=== PATIENT | female | born 1955 | race Caucasian/White ===

== ENCOUNTER → 2019-03-17 10:30 | Outpatient (CLI) | payer MEDICARE, BC, SELFPAY ==
[2019-03-17 11:35] LABS: Add Manual Diff / Slide Review NO; Basophils Absolute Auto 0 /uL (0-100); Basophils Percent Auto 0.3 % (0-2); Eosinophils Absolute Auto 200 /uL (0-450); Eosinophils Percent Auto 2.5 % (2-4); Hematocrit 46.3 % (36-46); Lymphocytes Absolute Auto 1200 /uL (1100-4500); Lymphocytes Percent Auto 16.9 % (25-40); Mean Corpuscular HGB Conc 34.5 % (30-36); Mean Corpuscular Hemoglobin 32.8 PG (26-34); Mean Corpuscular Volume 95.1 fL (80-100); Monocytes Absolute Auto 500 /uL (0-900); Monocytes Percent Auto 6.7 % (3-14); Neutrophils Absolute Auto 5100 /uL (1500-7000); Neutrophils Percent Auto 73.6 % (50-75); Platelet Count 213 X10^3/uL (150-400); Red Blood Cell Count 4.87 X10^6/uL (4.0-5.2); Red Cell Distribution Width 13.2 % (11.6-14.8)
[2019-03-17 12:07] LABS: Blood Urea Nitrogen 14 mg/dL (7-17); Calcium 9.6 mg/dL (8.4-10.2); Carbon Dioxide 34 mmol/L (22-32); Chloride 98 mmol/L (98-107); Cholesterol 218 mg/dL (140-199); Estimated Glomerular Filt Rate > 60.0 mL/min (>60); Glucose 97 mg/dL (80-110); HEMOLYSIS < 15 (0-50); Sodium 139 mmol/L (137-145); Triglycerides 149 mg/dL (35-150)
[2019-03-17 12:22] LABS: HDL Cholesterol 111 mg/dL (40-60); LDL Cholesterol Calculated 77 mg/dL (<100)
== END ==
PROVIDERS: PCP Internal Medicine; Visit Provider Internal Medicine
DX: I10 Essential (primary) hypertension (principal); Z13.220 Encounter for screening for lipoid disorders; Z01.818 Encounter for other preprocedural examination
CPT/HCPCS: 36415; 80048; 80061; 85025

== ENCOUNTER → 2019-03-27 09:55 | Outpatient (CLI) | payer MEDICARE, BC, SELFPAY | PROVIDERS: PCP Internal Medicine; Visit Provider Internal Medicine | DX: Z78.0 Asymptomatic menopausal state (principal); R29.890 Loss of height; M45.9 Ankylosing spondylitis of unspecified sites in spine | CPT/HCPCS: 77080 ==

== ENCOUNTER → 2019-03-28 10:04 | Outpatient (CLI) | payer MEDICARE, BC, SELFPAY ==
--- NOTE | 2019-03-28 | DI.MG.S_ITS ---
BILATERAL DIGITAL SCREENING MAMMOGRAM 3D/2D WITH CAD: 03/28/2019 CLINICAL: Routine screening. Comparison is made to exams dated: 04/26/2015 mammogram and 03/19/2017 mammogram - [facility]. There are scattered fibroglandular elements in both breasts. Current study was also evaluated with a Computer Aided Detection (CAD) system. No significant masses, calcifications, or other findings are seen in either breast. There has been no significant interval change. IMPRESSION: NEGATIVE There is no mammographic evidence of malignancy. A 1 year screening mammogram is recommended. This exam was interpreted at Station ID: [id number]. NOTE: For mammograms, a report in lay terms will be sent to the patient. Approximately 15% of breast malignancies will not be visualized mammographically. In the management of a palpable breast mass, a negative mammogram must not discourage biopsy of a clinically suspicious lesion. Electronically Signed By: Annabella paz/luis:03/30/2019 08:08:53 letter sent: Normal Exam ACR BI-RADS Category 1: Negative [id number]
== END ==
PROVIDERS: PCP Internal Medicine; Visit Provider Internal Medicine
DX: Z12.31 Encounter for screening mammogram for malignant neoplasm of breast (principal)
CPT/HCPCS: 77063; 77067

== ENCOUNTER 2019-04-01 12:58 | Day surgery (SDC) | payer MEDICARE, BC, SELFPAY ==
[2019-03-27 07:59] VITALS: BMI 35.4
[2019-04-01] VITALS (15 sets, daily range): BP systolic 103–154; BP diastolic 58–89; PULSE 53–67; RESP 8–98; TEMP 35.8–37.2; O2SAT 94–100; BMI 34.2
--- NOTE | 2019-04-01 07:43 | DI.RAD.S_ITS ---
PROCEDURE: XR KNEE RT 1TO2V INDICATIONS: TKA TECHNIQUE: 2 views of the knee were acquired. COMPARISON: None. FINDINGS: Bones: Status post right knee total arthroplasty. No fracture identified. Expected hardware alignment. Soft tissues: No joint effusion. No suspicious soft tissue calcifications. IMPRESSION: Expected postoperative appearance. Dictated by: Vish Olivares M.D. on 04/02/2019 at 9:02 Approved by: Vish Olivares M.D. on 04/02/2019 at 9:03
[2019-04-01] MEDS: ACETAMINOPHEN 325 MG TABLET 975 MG PO ×2 (13:45→20:25)
[2019-04-01] MEDS: PREGABALIN 75 MG CAPSULE PO (13:45)
[2019-04-01] MEDS: CELECOXIB 200 MG CAPSULE PO (13:45)
--- NOTE | 2019-04-01 15:24 | PM.PREOP ---
Pre-operative Note Interval Note History & Physical reviewed/Exam performed by Physician: Yes Changes to H&P: No
[2019-04-01] MEDS: CEFAZOLIN 2 GM/100 ML FROZ.PIGGY IV ×2 (15:51→23:09)
--- NOTE | 2019-04-01 16:10 | PM.OP.1 ---
Operative Date/Time/Diagnoses Date of procedure: 04/01/19 Time of procedure: 17:46 Pre-op diagnosis: Right knee osteoarthritis Post-op diagnosis: same Procedure & Clinicians Procedure: Right total knee arthroplasty Same procedure as scheduled: Yes Indications: The patient presents today for total knee arthroplasty after failure of conservative treatment. The nature of the procedure including the risks and benefits, alternatives, postoperative course and expected outcome were discussed and all questions answered. Consent was obtained. Operative site confirmed and marked. Surgeon: Gil Moore Instructional Services Specialist: Kenrick Rider Anesthesia Type: General, Spinal and Local Operative Notes Findings: Severe osteoarthritis with varus alignment. Specimen(s): none sent Prosthetic devices, grafts, tissues, transplants, or devices: [employer]elin BCS: 6 femoral component, 4 tibial component, 9 mm BCS polyethylene tray and 35 x 9 mm round patella Applied: implant(s) Estimated Blood Loss (mL): 10 Blood products transfused: none Tourniquet time (min): 63 Procedure in detail: The patient was taken to the operative suite and placed under general and spinal anesthesia. The patient was given prophylactic antibiotics prior to surgery. The patient was also given tranexamic acid, 1 g, just prior to surgery for postoperative hemostasis. The lateral knee was prepped and the joint injected with 20 mL of 1% Lidocaine with epinephrine. The knee was then prepped and draped in usual sterile fashion. The leg was exsanguinated with an Esmarch dressing and the tourniquet raised to 250 torr. A 15 cm anterior incision was made. Next a medial trivector arthrotomy was made. The extensor mechanism was marked to ensure accurate repair. Initial exposing dissection was carried out medially and laterally. The knee was then extended and the patellar thickness was measured and a cut made removing approximately 9 mm of bone. The patella was then sized and drilled. Some excess lateral bone was excised and the patellofemoral ligament released. The knee was then flexed and the intramedullary femoral guide meghan placed. The distal femoral cut was made in 6 ? of valgus at the + 0 position. The femoral size was measured and the appropriate cutting block was then placed and the anterior, posterior and chamfer cuts made. The intramedullary tibial alignment meghan was then placed. The guide was set to remove approximately 10 mm from the less affected lateral side. The proximal tibial cut was then made with an oscillating saw. All meniscus and bony debris was then removed. Posterior femoral osteophytes removed with a curved osteotome. Flexion extension gaps were checked. There was some mild medial tightness. This was corrected with percutaneous release of the MCL with an 18 gauge needle along with standard soft tissue releases and osteophyte removal. The soft tissues were then injected with a combination of 20 mL of half percent Marcaine with epinephrine and 20 mL of Exparel. The trial components were then placed. The knee went into full extension and flexion beyond 120?. There was excellent medial-lateral balance throughout motion. Patellar tracking was excellent. The trial components were removed and the knee was cleansed with Pulsavac irrigation and dried. The final components were cemented with high viscosity vacuum mixed bone cement with antibiotics. The joint was filled with a dilute Betadine solution. The knee was held in extension and the patellar clamped until the cement was fully cured. The knee was then irrigated. The extensor mechanism was closed with 5 interrupted #1 Vicryl sutures and a running Quill suture at 90 degrees of flexion. The joint was then injected with a combination of 1 g of tranexamic acid and 20 mL of quarter percent Marcaine with epinephrine. The subcutaneous tissue was closed with 2 0 Vicryl. The skin was closed with agueda and surgical adhesive. An Aquacel dressing and Neel wrap were then applied. The patient tolerated the procedure well and was returned to recovery room in good condition. Complications: none Post-operative Condition: stable Disposition: PACU Plan for aftercare: [facility] protocol for total knee arthroplasty.
--- NOTE | 2019-04-01 16:46 | SUR.OPER ---
Supine on padded OR bed. Pillow under head, arms secured on padded armboards <90 degree abduction. Safety belt across torso. Non-operative leg secured with tape over blanket over lower leg. Operative leg secured in DeMayo/Cr positioner. Foam padded brace at thigh of operative leg.
[2019-04-01] MEDS: BUPIVACAINE 0.25% W/ EPI (PF) 40 ML, BUPIVACAINE LIPOSOME 266 MG, SODIUM CHLORIDE 0.9% ... INJ (16:54)
[2019-04-01] MEDS: BUPIVACAINE 0.25% W/ EPI (PF) 20 ML, TRANEXAMIC ACID 1,000 MG, SODIUM CHLORIDE 0.9% 10 ML INJ (16:55)
--- NOTE | 2019-04-01 18:17 | SUR.PHASEI ---
Patient arrived in PACU somnolent. Arouses to noxious stimuli. Denies pain/nausea. X-ray done at bedside. VSS.
[2019-04-01] MEDS: LACTATED RINGERS 1,000 ML 125 ML IV (18:50)
[2019-04-01] MEDS: ASPIRIN EC 81 MG TABLET PO (20:25)
--- NOTE | 2019-04-02 00:07 | PC.NURSE ---
Addendum entered by Jazmyn Villegas R.N. 04/02/19 03:33: States pain just above right knee is 3/10 and feels achy; medicated with Ibuprofen. Up to BSC with walker and 1 assist and did well. O2 removed again for trial of titration; remains on continuous oximetry. Original Note: Patient is alert and oriented. Breath sounds CTA with sat of 96% on oxygen at 1L/min per NC. O2 removed at shift change and intermittently dropping down into upper 80's so placed back on oxygen at 0.5L/min; on continuous pulse oximetry so will continue to monitor. HRR but bradycardic at 56 bpm. Denies nausea. BT present and abdomen is soft; denies flatus. Has voided using bedpan and denies dysuria, frequency or urgency. Dressing (Aquacel + kerri wrap) is CDI to right knee. Denies any pain. Some swelling noted in thigh, foot and ankle of right LE. CMS is intact bilaterally. Able to move right leg well and can lift off bed. Gait/transfer not assessed as has not been out of bed since return from surgery but reports pre-op weakness related to knee and arthritis. Is able to turn self in bed. Fall risk score is moderate.
[2019-04-02] MEDS: IBUPROFEN 400 MG TABLET PO ×2 (03:21→14:30)
[2019-04-02] MEDS: LACTATED RINGERS 1,000 ML 125 ML IV (03:23)
[2019-04-02 03:25] VITALS: BP 127/88; PULSE 63; RESP 18; TEMP 36.7; O2SAT 96
[2019-04-02] MEDS: PANTOPRAZOLE 20 MG TABLET PO (06:05)
[2019-04-02 06:26] LABS: Hematocrit 38.9 % (36-46); Hemoglobin 13.2 g/dL (12.0-16.0)
[2019-04-02 07:45] VITALS: BP 116/72; PULSE 58; RESP 16; TEMP 36.7; O2SAT 92
[2019-04-02] MEDS: ASPIRIN EC 81 MG TABLET PO (08:25)
[2019-04-02] MEDS: hydroCHLOROthiazide 25 MG TABLET PO (08:25)
[2019-04-02] MEDS: ACETAMINOPHEN 325 MG TABLET 975 MG PO ×2 (08:25→14:29)
[2019-04-02] MEDS: CITALOPRAM 10 MG TABLET PO (08:26)
[2019-04-02] MEDS: CEFAZOLIN 2 GM/100 ML FROZ.PIGGY IV (08:26)
--- NOTE | 2019-04-02 09:20 | PT.IIE ---
note documented by PT student Avis Mueller. I certify that I have reviewed this documentation and is involved with this patient's tx. Current Diagnoses Bilateral primary osteoarthritis of knee (04/01/19) Surgery Performed Operation Date: 04/01/19 15:00 Actual Procedures p Total Knee Arthroplasty(Right) - Gil Moore MD Surgical History (Last Updated 03/27/19 @ 08:18 by Erica Leong, RN) H/O arthroscopic knee surgery (Acute) Hx of bariatric surgery (Acute ~2008) Hx of cervical spine surgery (Acute ~2014) Medical History (Last Updated 03/27/19 @ 08:18 by Erica Leong RN) Anxiety (Acute) Arthritis (Acute) Depression (Acute) Easy bruisability (Acute) HTN (hypertension) (Acute) Osteoarthritis (Acute) Physical Therapy Inpatient Evaluation/Re-Eval M1 PT/OT-IP Prior Functional Status Start: 04/02/19 13:09 Freq: NEEDED Status: Discharge Protocol: Document 04/02/19 09:20 MT (Rec: 04/02/19 14:28 MT [id number]) Medical Review Prior Functional Status Medical History Reviewed Yes Diet/Fluid Consistency Regular Communication Pt was able to fully communicate Mobility and Gait Pt was fully independent with all of her mobility and gait. She self limited her gait distance d/t pain in B knees. Activities of Daily Living and IADL's Pt was fully independent with all of her ADl/iADL's Social History Household Members spouse Living Arrangements House Number of Floors (Floors) One Floor Number of Stairs To Enter/Railing? Pt does not have any stairs, but has about a 2 inch threshold to get inside of her house Home Environment High Toilet,Walk in Shower Home Equipment Front Wheel Walker,Straight Cane,Raised Toilet Seat w/ Armrests,Shower Seat without Backrest Employment Status Laundry Assistant Employed Additional Social History Comment Pt is employed and fully works at a computer at home M2 PT-IP Current Condition Start: 04/02/19 13:09 Freq: NEEDED Status: Discharge Protocol: Document 04/02/19 09:20 MT (Rec: 04/02/19 14:28 MT [id number]) Physical Therapy Current Condition Current Condition Evaluation Date 04/02/19 Treatment Diagnosis Reduced mobility and gait following R TKA Onset Date 04/01/19 Weight Bearing Status Weight Bearing Status Weight Bear as Tolerated M3 PT-IP Subjective Start: 04/02/19 13:09 Freq: NEEDED Status: Discharge Protocol: Document 04/02/19 09:20 MT (Rec: 04/02/19 14:28 MT [id number]) Subjective Physical Therapy Visit Type Type Initial Evaluation Visit Start Time 09:20 Visit Stop Time 10:06 Total Visit Minutes 46 Number of MAC ARTIST Visits 0 Physical Therapy Visit Comments Patient Comments Pt was agreeable to particiapte in physical therapy evaluation. Therapy Pain Assessment Pain When Pain Assessed At Rest Pain Present Pain Present Pain Reported Location Right Knee Intensity 2 Scale Used increase to 4/10 during ambulation Description Aching,Dull Pain Management Techniques Apply Cold,Re-positioning, Timing of Activity with Medications M4 PT-IP Mobility and Gait Start: 04/02/19 13:09 Freq: NEEDED Status: Discharge Protocol: Document 04/02/19 09:20 MT (Rec: 04/02/19 14:28 MT [id number]) PT-Bed Mobility Assessment Sit to Supine Sit to Supine Independent Scooting Scooting to Edge of Bed Independent Scooting Up and Down in Bed Independent PT-Transfer Assessment Sit to and From Stand Sit to and from Stand Contact Guard Assistance, Minimal Assistance,1 Person Assistance Equipment Transfer Assistive Device Gait Belt,Front Wheeled Walker Orthotic/Prosthetic Devices or Brace: No Transfers Transfer Destination Bed,Chair,Wheelchair Transfer Technique Stand Step Pivot Transfer Ability Level of Assist Contact Guard Assistance, Minimal Assistance Comments Mobility Comments Pt demonstrated independence in the bed mobility that was tested. Unable to further test bed mobility due to onset of orthostatic drop in BP in which the pt needed to maintain a recumbant position in order to increase BP. Pt demonstrated CGA-Katie for transfers due to safety when the pt was feeling dizzy and had orthostatic symptoms. Pt's BP was measured in sitting prior to first stand ( 119/71). Pt was perfomring well and reported no fatigue or dizziness and ambulated. Following ambulation of 100ft, pt began reporting symptoms of dizziness and BP was retaken (84/44). Nursing was notifed of change in status. Pt was immediately transferred to her bed and positioned in supine with her legs elevated and BP was retaken (100/54) showing improvement with positioning. Gait Assessment Gait Gait Assistance Required: Contact Guard Assist Distance (Feet) 90 Able to Maintain Weight Bearing Status Yes During Gait Assistive Devices Assistive Device Gait Belt,Front Wheeled Walker Orthotic/Prosthetic Devices or Brace: No Gait Deviations General Gait Pattern Antalgic,Decreased Stride Length,Decreased Feet Clearance Factors Limiting Gait Function Factors Limiting Gait Function Decreased Sensation,Decreased Strength,Limited Range of Motion,Pain,Poor Balance Comments Gait Comments Pt was able to ambulate 90 ft with FWW and CGA. Pt began exhibiting dizziness following gait activities and further activity was withheld. Stair Climbing Assessment Comments Stair Climbing Comments stair assessment was withheld due to orthostatic signs and symptoms PT-Balance Assessment Sitting Balance and Reactions Static Sitting Balance Ability Normal Dynamic Sitting Balance Ability Normal Standing Balance and Reactions Static Standing Balance Ability Fair Dynamic Standing Balance Ability Fair Device Used 2WW M5 PT-IP Objective Assessments Start: 04/02/19 13:09 Freq: NEEDED Status: Discharge Protocol: Document 04/02/19 09:20 MT (Rec: 04/02/19 14:28 MT [id number]) Orientation Orientation/Cognition Level of Alertness Alert Orientation Name,Age,Birthday,Month,Date, Year,Day of Week,Place, Situation Language Function Ability No Deficits Noted Safety Awareness Understands Safety Issues Memory Description No Deficits Noted Comments Pt presents fully alert and oriented Gross Range of Motion Lower Extremity ROM Assessment Within Functional Limits Strength Lower Extremity Strength Assessment Right Impaired Hip 4-/5 R hip flex Knee 5/5 R knee flex/ext Ankle 4-/5 R ankle DF Comments Strength Comments Pt's L hip flexion is WFL, but is about a 4+/5 Muscle Tone Muscle Tone WNL Yes M6 PT-IP Treatment Start: 04/02/19 13:09 Freq: NEEDED Status: Discharge Protocol: Document 04/02/19 09:20 MT (Rec: 04/02/19 14:28 MT [id number]) Physical Therapy Treatment Education Education Provided Post-Op Packet,Safety M7 PT-IP Assessment and Plan Start: 04/02/19 13:09 Freq: NEEDED Status: Discharge Protocol: Document 04/02/19 09:20 MT (Rec: 04/02/19 14:28 MT [id number]) PT Summary Assessment and Plan Potential Rehabilitation Potential Excellent Status of Condition at Evaluation Evolving Summary Impairments Pain,Strength,Balance, Transfers,Gait,Activity Tolerance Assessment Summary Pt demonstrates decreased ability to transfer and ambulate from her PLOF following a RTKA. She is independent in sit to supine bed mobility. She is able to perform transfer with 2WW and CGA-Katie. Pt was able to ambulate 90ft with FWW and CGA . Following ambulation, pt sat for a minute and began reporting dizziness. her BP was measured and found to be orthostatic and she was laid down in supine in bed and her feet were elevated, which re- elevated BP. Pt will be able to discharge home from facility with assist from , pending that is able to safely provide assistance and she is able to complete 1 stair step for preparation of negotiating threshold to get in her house. Goals Bed Mobility Goal Independent Transfer Goal Standby Assistance,Front Wheeled Walker Gait Goal Standby Assistance,Front Wheel Walker Gait Distance 100ft Other Goals SBA for 1 step Days to Meet Goals 3 Frequency of Treatment Frequency Of Treatment Twice a Day Treatment Plan Physical Therapy Treatment Plan Bed Mobility Training,Transfer Training,Gait Training, Therapeutic Exercise,Balance Retraining,Post Op Education, Discharge Planning,Hot or Cold Pack Other Recommendations and Next Treatment stair training for safetyy Focus ascend/descend 1 step in preparation for pt's discahrge environment Recommendations To Nursing Amount of Assist Needed 1 Person Assist Discharge Recommendations PT Discharge Recommendations Home with Assistance, Outpatient PT
--- NOTE | 2019-04-02 10:49 | P.DS_ITS ---
History of Present Illness History of Present Illness Date Patient Seen: 04/02/19 Time Patient Seen: 09:00 Chief complaint: [id number] Narrative: The patient presents today for total knee arthroplasty after failure of conservative treatment. The nature of the procedure including the risks and benefits, alternatives, postoperative course and expected outcome were discussed and all questions answered. Consent was obtained. Operative site confirmed and marked. Post op day 1 s/p total right knee arthroplasty with Dr. Moore. No acute events overnight. Patient ambulated with PT this AM and felt dizzy. Last BP 116/72. In bed denies fever, chills, dizziness, nausea, vomiting, palpatations, chest pain, shortness of breath. H/H 13.2/38.9. 24 hr I&O 2000/1250 mL. Has second PT session setup for this afternoon.Patient voiding without assistance. Patient's pain is well managed with tylenol, educated on likelihood of pain increasing. Patient has no complaints. Discharge Providers Provider Date of admission: 04/01/19 12:58 Discharge Date: 04/02/19 Primary care physician: Yojana Ríos MD Consults: 04/01/19 18:48 Consult to Discharge Planning Routine Comment: Consult to Physical Therapy Evaluate & Treat Comment: Physician Instructions: postop TKA protocol Consult to Respiratory Therapy Evaluate & Treat Comment: Physician Instructions: Evaluate and treat Discharge provider: Marleny Morgan PA-C Summary Hospital Course Discharge Diagnosis: s/p right total knee arthroplasty arthritis osteoarthritis hypertension anxiety depression Hospital Course: Patient admitted s/p right total hip arthroplasty with Dr. Moore. On POD 1 patient was ready for discharge home with assistance from Davon Oh. Patient felt dizzy during first physical therapy session, likely vasovagal. Pain is well managed with tylenol and has prescription for oxycodone at home. Patient is voiding and eating without difficulty or assistance. Outpatient PT scheduled with [facility] PT. ASA 81 mg BID for dvt prophylaxis. Status at Discharge Cognitive/behavioral status at discharge: at baseline, oriented Functional status at discharge: uses cane/walker Overall status at discharge: patient is progressing back to baseline Time Spent with Patient Time spent: Less than 30 minutes Exam Vital Signs (past 8 hours): - 04/02/19 03:25 04/02/19 07:45 Temperature 98.1 F 98.1 F Pulse Rate 63 58 L Respiratory Rate 18 16 Blood Pressure 127/88 116/72 Pulse Oximetry 96 92 Oxygen Delivery Method Nasal Cannula Oxygen Flow Rate 0 Narrative Exam Narrative: 64 year old female laying in bed comfortably, in no apparent distress. A&Ox3. Dressing is CDI. SCD's in place. Patient able to actively p lantar flex/dorsiflex. Dorsalis pedis 2+ b/l. Capillary refill <2seconds LE b/l. Calves warm, soft, compressible, nttp. Objective Labs Result Diagrams: 04/02/19 06:02 Labs: Laboratory Results - last 24 hr 04/02/19 06:02 Hgb 13.2 Hct 38.9 Discharge Plan Discharge Plan Patient Disposition: Home Discharge comment: discharge home pending physical therapy Discharge Med Rec/Prescriptions Prescriptions: New ibuprofen 400 mg tablet 400 mg PO Q4H Qty: 60 RF: 0 acetaminophen [Tylenol Extra Strength] 500 mg tablet 500 mg PO Q4H PRN (Reason: pain) Qty: 60 RF: 0 aspirin 81 mg tablet,delayed release (DR/EC) 81 mg PO DAILY Qty: 60 RF: 0 Continued citalopram 20 MG tablet 10 mg PO QDAY Qty: 0 RF: 0 omeprazole 20 mg Capsule,Delayed Release(Dr/Ec) 20 mg PO DAILY RF: 0 hydrochlorothiazide 25 mg Tablet 25 mg PO DAILY RF: 0 diclofenac sodium 50 mg Tablet,Delayed Release (Dr/Ec) 50 mg PO Q12H PRN (Reason: Pain) RF: 0 Follow up/Referrals: Gil Moore MD [Physician] - Yojana Ríos MD [Primary Care Provider] - Provider Discharge Instructions Diet: Regular Activity: weightbearing as tolerated. follow [facility] protocol for total knee arthrolplasty Cold/Heat Therapy: continue cold/heat therapy as needed Skin/Wound/Dressing Care Report to your healthcare provider any signs of infection, such as:: chills, fever, increased pain, unusual drainage and unusual redness Dressing: Keep dressing dry, can be used in shower, don't soak (e.g. bath). Contact office if saturated. Visit Report/Discharge Packet Instructions: DI for Knee Replacement Stand Alone Forms: Surgery Discharge Discharge Data Primary Care Provider: Yojana Ríos Quality VTE Deep Vein Thrombosis/Pulmonary Embolism Present on Admission: No
--- NOTE | 2019-04-02 12:11 | CM.DANOTE ---
DCP Assessment: EMR reviewed: patient is a 64 yr old female. Patient had Rt TKA preformed by Dr Moore. PCP is Dr Ríos. CM met with patient at bedside and explained CM/ RN role. patient is I with all ADL's at baseline. patient lives in a single level home with 1 step to get into the home. Patient lives with her DAVON (DPOA) [phone] who will be at home with patient for two weeks. Patient is on [facility] path and had f/u appt with both OP PT and f/U surgeons appointments scheduled. PT step evaluation pending. Insurance: 1st; medicare, 2nd [facility] Plan: D/C home with when stable. No D/C planning needs identified at this time. Yojana li RN. Discharge Planning/Care Management CM Discharge Assessment Start: 04/02/19 12:09 Freq: Status: Active Protocol: Document 04/02/19 12:09 HS (Rec: 04/02/19 12:11 [id number]) Discharge Planning Assessment Assigned Supervisor Prop Making Yojana Li RN DPOA/Assigned Designee Name Davon Oh () Contact Information [phone] Advance Directives? Yes Advance Directives on File No History Provided By Patient Has Patient been admitted in last 30 No days? Prior Living Arrangements House Household Members spouse Type of transporation used prior to Drives own vehicle admit Independent with ADL's Yes Is patient alert and oriented? Yes Caregiver for Another No DME Already Rented / Owned FWW / Walker,Cane Patient/Family Preference OP PT Therapy Discharge Plan Home Whiteboard Updated in Patient Room with Yes name and ext. # of Supervisor Prop Making Review Status In Process Next Review Type Continued Stay Review Pre-Anesthesia Assessment Start: 03/27/19 07:59 Freq: Status: Complete Protocol: Document 03/27/19 07:59 CAB (Rec: 03/27/19 08:31 CAB [id number]) Pre-Anesthesia Assessment Patient Also Known As (AKA) Cindi Patient Information Reviewed Via Phone Assessment Assessment Completed With Patient Diagnostic Results BMP/CMP,CBC Comment Labs @ [facility] 03/17/19. EKG @ PCP, not available at time of assess Primary Care Provider Yojana Ríos Seen Specialist in Last 12 Months Yes Specialist Seen Orthopedist Primary Language Nepali Clothes Drier Repairer Required No Height 170.18 cm Weight 102.512 kg Body Mass Index (BMI) 35.4 Hearing Ability Normal Visual Assist Contacts,Glasses Dentition Type Teeth, Natural Present Barriers to Learning None Other Aids No Hx Anesthesia Reactions Yes: PONV Hx Family Anesthesia Reaction Yes: Mom (age 80) didn't wake up the same person after surgery Hx Malignant Hyperthermia No Hx Blood Transfusions No Anesthesia Review Requested No alcohol intake current Alcohol Intake Frequency Other: Holding last 7 days for surgery Smoking Status Never smoker Substance Use Type does not use Pain Present Pain Reported Musculoskeletal Symptoms Abnormal Gait,Back Pain, Difficulty Walking,Joint Pain, Muscle Cramps,Muscle Spasms, Muscle Weakness History of Falling (Recent or History of No ) Patient is completely paralyzed or No completely immobile Mental Status Oriented to own ability Is patient on oxygen? No Does patient have DAVILA/SOB No Hx Sleep Apnea No Currently Taking a Beta Darwin No Can You Climb a Flight of Stairs Without Yes SOB Hx Chest Pain No Hx SOB No Hx Syncope or Dizziness No Anti-Coagulant Therapy No Has a Automatic Steel Tie Adjuster No Cardiac Testing No Hx Pacemaker/ICD No Pacemaker Rep Required? No Cardiac Clearance Received Not Applicable Diet Type At Home Regular dysphagia No Urinary Catheter Present No Hx Urinary Self Catheterization No Diabetes No Patient No Lactating No Hx Drug Resistant Organism No Presence of External or Internal Medical Yes: Gastric sleeve, cervical Devices hardware Have you traveled outside the [facility] in the last 30 days? Comment Suzanne travel end of February Marital Status Lives With spouse Prior Living Arrangements House Number of Floors (Floors) One Floor Support System Spouse Does the Patient Have Assistance After Yes Surgery Patient Discharge Plan Description Return Home Comment Pt advised overnight length of stay per surgeon Feels Safe in Current Environment Yes Been Physically Hurt or Threatened By a No Person in Current Environment Do you have thoughts of harming yourself None or others? Are you currently considering suicide? No Do you have a plan to hurt yourself or No Plan others? Do You Have Any Spiritual Beliefs That No May Affect Your HC Choices? Do You Have Any Cultural Practices That No May Affect Your HC Choices? Comment Sikh Who Can We Speak to About Patient's Care Family, friends Identifying Code for Release of Patient Declines to issue Information Health Care Proxy/Next of Kin Al () Health Care Proxy Emergency Contact Name Al () Emergency Contact Advance Directives? Yes Advance Directives on File No Requested Patient Bring Advanced Yes Directives DOS Power of Pulp Cooker Yes Power of Pulp Cooker Name Al () Power of Pulp Cooker PAC Instructions Do not shave/clip surgical site,Durable medical equipment ,Medications to take/avoid, Nasal antibiotic,No ETOH/ petroleum product on skin DOS, NPO,Post-op transportation,Pre -surgical wash,Sturdy shoes/ comfortable clothes,Do not bring valuables and remove jewelry
--- NOTE | 2019-04-02 13:29 | PC.NURSE ---
Pt is dressed and ready for discharge home with Spouse. IV has been removed. Went over d/c instructions with Pt-discussed d/c meds, time of last dose, reviewed stroke education, s/s of infection, tylenol dosing, icing, showering, and follow up. Pt denies further questions and is ready to be taken out to POV with Spouse and all belongings after Pt works with P.T. and is cleared.
--- NOTE | 2019-04-02 14:30 | PT.IPTN ---
Note completed by PT student Avis Mueller. I certify that I have reviewed this documentation and is involved in this pt's tx. Current Diagnoses Bilateral primary osteoarthritis of knee (04/01/19) Surgery Performed Operation Date: 04/01/19 15:00 Actual Procedures p Total Knee Arthroplasty(Right) - Gil Moore MD Physical Therapy Treatment Note M2 PT-IP Current Condition Start: 04/02/19 13:09 Freq: NEEDED Status: Discharge Protocol: Document 04/02/19 09:20 MT (Rec: 04/02/19 14:28 MT [id number]) Physical Therapy Current Condition Current Condition Evaluation Date 04/02/19 Treatment Diagnosis Reduced mobility and gait following R TKA Onset Date 04/01/19 Weight Bearing Status Weight Bearing Status Weight Bear as Tolerated M3 PT-IP Subjective Start: 04/02/19 13:09 Freq: NEEDED Status: Discharge Protocol: Document 04/02/19 14:30 MT (Rec: 04/02/19 18:41 MT [id number]) Subjective Physical Therapy Visit Type Type Treatment Note Visit Start Time 14:30 Visit Stop Time 14:43 Total Visit Minutes 13 Number of HAY BUCKLER Visits 0 Physical Therapy Visit Comments Patient Comments Pt was eager to participate in physical therapy Therapy Pain Assessment Pain When Pain Assessed At Rest Pain Present Pain Present Pain Reported Location Right Knee Intensity 2 Scale Used Numeric (1 - 10) Description Aching,Dull M4 PT-IP Mobility and Gait Start: 04/02/19 13:09 Freq: NEEDED Status: Discharge Protocol: Document 04/02/19 14:30 MT (Rec: 04/02/19 18:41 MT [id number]) PT-Bed Mobility Assessment Supine to Sit Supine to Sit Independent PT-Transfer Assessment Sit to and From Stand Sit to and from Stand Contact Guard Assistance Equipment Transfer Assistive Device Gait Belt,Front Wheeled Walker Orthotic/Prosthetic Devices or Brace: No Transfers Transfer Destination Bed Transfer Technique Stand Step Pivot Transfer Ability Level of Assist Contact Guard Assistance Comments Mobility Comments Pt required CGA for transfer and cueing for slowing down to remember safety precautions, but requires less cueing about the sequencing of the transfer. Gait Assessment Gait Gait Assistance Required: Standby Assistance,Contact Guard Assist Distance (Feet) 50 Able to Maintain Weight Bearing Status Yes During Gait Assistive Devices Assistive Device Gait Belt,Front Wheeled Walker Orthotic/Prosthetic Devices or Brace: No Gait Deviations General Gait Pattern Antalgic,Decreased Stride Length,Decreased Feet Clearance Factors Limiting Gait Function Factors Limiting Gait Function Decreased Activity Tolerance, Decreased Strength,Pain Comments Gait Comments Pt was able to ambulate SBA 50 ft with 2WW. Pt's was present and was educated in how to assist pt using gait belt. Stair Climbing Assessment Evaluation Level of Assist On Stairs Contact Guard Assistance Devices Stair Climbing Assistive Devices Front Wheel Walker Technique/Endurance Stair Climbing Direction Ascend and Descend Stair Climbing Technique Step to Step Number of Steps Climbed 1 Stair Climbing Set # Repetitions (reps) 2 Comments Stair Climbing Comments Pt was able to ascend/descend one step 2 times with CGA. She required cueing for getting close enough to the step in order to safely ascend /descend it. was educated in how to assist and cue pt to safely negotiate step in preparation for discharge home. PT-Balance Assessment Sitting Balance and Reactions Static Sitting Balance Ability Normal Dynamic Sitting Balance Ability Normal Standing Balance and Reactions Static Standing Balance Ability Good Dynamic Standing Balance Ability Good Device Used 2WW M5 PT-IP Objective Assessments Start: 04/02/19 13:09 Freq: NEEDED Status: Discharge Protocol: Document 04/02/19 09:20 MT (Rec: 04/02/19 14:28 MT [id number]) Orientation Orientation/Cognition Level of Alertness Alert Orientation Name,Age,Birthday,Month,Date, Year,Day of Week,Place, Situation Language Function Ability No Deficits Noted Safety Awareness Understands Safety Issues Memory Description No Deficits Noted Comments Pt presents fully alert and oriented Gross Range of Motion Lower Extremity ROM Assessment Within Functional Limits Strength Lower Extremity Strength Assessment Right Impaired Hip 4-/5 R hip flex Knee 5/5 R knee flex/ext Ankle 4-/5 R ankle DF Comments Strength Comments Pt's L hip flexion is WFL, but is about a 4+/5 Muscle Tone Muscle Tone WNL Yes M6 PT-IP Treatment Start: 04/02/19 13:09 Freq: NEEDED Status: Discharge Protocol: Document 04/02/19 14:30 MT (Rec: 04/02/19 18:41 MT [id number]) Physical Therapy Treatment Education Education Provided Safety M7 PT-IP Assessment and Plan Start: 04/02/19 13:09 Freq: NEEDED Status: Discharge Protocol: Document 04/02/19 14:30 MT (Rec: 04/02/19 18:41 MT [id number]) PT Summary Assessment and Plan Potential Rehabilitation Potential Excellent Summary Impairments Pain,ROM,Strength,Balance, Transfers,Gait,Activity Tolerance Progress Towards Goals Progressing Toward Goals,Safe For Discharge Assessment Summary Pt was able to safely navigate step and ambulate with CGA. She continues to require cueing for safety and slowing down movements. was educated on how to asssit and cue pt for walking and ascend/ descend stair using 2WW and gait belt. Pt was able to safely ascend/descend step with . Goals Bed Mobility Goal Independent Transfer Goal Standby Assistance,Front Wheeled Walker Gait Goal Standby Assistance,Front Wheel Walker Gait Distance 100ft Other Goals SBA for 1 step Days to Meet Goals 3 Frequency of Treatment Frequency Of Treatment Twice a Day Treatment Plan Physical Therapy Treatment Plan Bed Mobility Training,Transfer Training,Gait Training, Therapeutic Exercise,Balance Retraining,Post Op Education, Discharge Planning,Hot or Cold Pack Recommendations To Nursing Amount of Assist Needed 1 Person Assist Discharge Recommendations PT Discharge Recommendations Home with Assistance, Outpatient PT
== END 2019-04-02 14:49 | disposition home or self-care (01) ==
LOC: AC 04-02 13:16 → OR 04-02 14:56
PROVIDERS: PCP Internal Medicine; Visit Provider Orthopaedic Surgery
PROC: 0SRC0JZ Replacement of Right Knee Joint with Synthetic Substitute, Open Approach (ICD-10-PCS; CPT 27447; principal; 2019-04-01 15:00)
DX: M17.11 Unilateral primary osteoarthritis, right knee (principal); G89.18 Other acute postprocedural pain
CPT/HCPCS: 27447; 36415; 64445; 73560; 85014; 85018; 94760; 94762; 97116; 97162; C1776; C9290; J0690; J1100; J2250; J2274; J2405; J2704; J3010

== ENCOUNTER → 2019-05-11 14:47 | Outpatient (ROUT) | payer MEDICARE, BC, SELFPAY ==
[2019-04-01 13:30] VITALS: BMI 34.2
[2019-05-11 15:32] LABS: C-Reactive Protein Quant 1.5 mg/dL (<1.0); Uric Acid 7.5 mg/dL (2.5-6.2)
[2019-05-11 15:35] LABS: Rheumatoid Factor < 8.6 IU/mL (<12.0)
[2019-05-11 15:38] LABS: Erythrocyte Sedimentation Rate 6 MM/HR (0-20)
[2019-05-14 08:16] LABS: ANA Screen, IFA NEGATIVE (NEGATIVE)
== END ==
PROVIDERS: PCP Internal Medicine; Visit Provider Internal Medicine
DX: M25.50 Pain in unspecified joint (principal)
CPT/HCPCS: 84550; 85651; 86038; 86140; 86430

== ENCOUNTER → 2019-07-03 11:14 | Outpatient (CLI) | payer MEDICARE, BC, SELFPAY ==
[2019-04-01 13:30] VITALS: BMI 34.2
[2019-07-03 11:58] LABS: Uric Acid 3.7 mg/dL (2.5-6.2)
== END ==
PROVIDERS: PCP Internal Medicine; Visit Provider Internal Medicine
DX: M1A.9XX1 Chronic gout, unspecified, with tophus (tophi) (principal)
CPT/HCPCS: 36415; 84550

== ENCOUNTER → 2019-11-12 13:31 | Outpatient (CLI) | payer MEDICARE, BC, SELFPAY ==
[2019-04-01 13:30] VITALS: BMI 34.2
[2019-11-12 14:52] LABS: Add Manual Diff / Slide Review NO; Basophils Absolute Auto 0 /uL (0-100); Basophils Percent Auto 0.3 % (0-2); Eosinophils Absolute Auto 100 /uL (0-450); Eosinophils Percent Auto 1.9 % (2-4); Hematocrit 40.4 % (36-46); Lymphocytes Absolute Auto 1400 /uL (1100-4500); Lymphocytes Percent Auto 22.9 % (25-40); Mean Corpuscular HGB Conc 34.6 % (30-36); Mean Corpuscular Hemoglobin 33.4 PG (26-34); Mean Corpuscular Volume 96.6 fL (80-100); Monocytes Absolute Auto 400 /uL (0-900); Monocytes Percent Auto 6.6 % (3-14); Neutrophils Absolute Auto 4200 /uL (1500-7000); Neutrophils Percent Auto 68.3 % (50-75); Platelet Count 224 X10^3/uL (150-400); Red Blood Cell Count 4.18 X10^6/uL (4.0-5.2); Red Cell Distribution Width 13.4 % (11.6-14.8); White Blood Cell Count 6.2 X10^3/uL (4.5-11.0)
[2019-11-12 15:27] LABS: BUN Creatinine Ratio 28.2 (6-22); Blood Urea Nitrogen 24 mg/dL (7-17); Calcium 9.9 mg/dL (8.4-10.2); Carbon Dioxide 32 mmol/L (22-32); Chloride 101 mmol/L (98-107); Estimated Glomerular Filt Rate > 60.0 mL/min (>60); Glucose 99 mg/dL (80-110); HEMOLYSIS < 15 (0-50); Potassium 4.5 mmol/L (3.4-5.1); Sodium 137 mmol/L (137-145)
[2019-11-12 16:16] LABS: TSH w/ Reflex to FT4 2.94 uIU/mL (0.47-4.68)
== END ==
PROVIDERS: PCP Internal Medicine; Referring Provider Internal Medicine; Visit Provider Internal Medicine
DX: R00.2 Palpitations (principal)
CPT/HCPCS: 36415; 80048; 83735; 84443; 84550; 85025

== ENCOUNTER → 2020-01-29 11:45 | Outpatient (CLI) | payer MEDICARE, BC, SELFPAY ==
[2020-01-28 16:28] VITALS: BMI 34.2
--- NOTE | 2020-01-29 | DI.US.S_ITS ---
PROCEDURE: US PELVIC COMPLETE INDICATIONS: POSTMENOPAUSAL BLEEDING TECHNIQUE: Real-time scanning was performed of the pelvic organs, with image documentation. Additional endovaginal scanning was necessary due to incomplete visualization of the adnexal and endometrial structures by transabdominal scanning. COMPARISON: None. FINDINGS: Transabdominal scanning: Limited scanning through the kidneys shows no hydronephrosis. No pathologic free abdominal or pelvic fluid. Endovaginal scanning: Uterus: Uterus is normal in size at 2.6 x 3.6 x 5.3 cm. The endometrium measures 6.2 mm in combined thickness. A discrete endometrial mass or abnormal fluid collection is not seen. Ovaries: Right ovary measures 1.2 x 1.6 x 1.4 cm and left measures 1.3 x 0.8 x 0.9 cm. Presumed postmenopausal ovarian atrophy IMPRESSION: Normal examination. The absence of identifiable mass or abnormal fluid collection does not entirely exclude the likelihood of endometrial carcinoma. Depending on the clinical status follow-up by gynecological consultation and biopsy may be warranted. Dictated by: Sravan Lee M.D. on 01/29/2020 at 14:53 Approved by: Sravan Lee M.D. on 01/29/2020 at 14:56
== END ==
PROVIDERS: PCP Internal Medicine; Referring Provider Internal Medicine; Visit Provider Internal Medicine
DX: N95.0 Postmenopausal bleeding (principal)
CPT/HCPCS: 76856

== ENCOUNTER → 2020-04-05 12:12 | Outpatient (CLI) | payer MEDICARE, BC, SELFPAY ==
[2020-01-28 16:28] VITALS: BMI 34.2
--- NOTE | 2020-04-05 | DI.MG.S_ITS ---
BILATERAL DIGITAL SCREENING MAMMOGRAM 3D/2D WITH CAD: 04/05/2020 CLINICAL: Routine screening. Comparison is made to exams dated: 03/28/2019 mammogram - [facility], 03/19/2017 mammogram, and 04/26/2015 mammogram - [facility]. There are scattered fibroglandular elements in both breasts. Current study was also evaluated with a Computer Aided Detection (CAD) system. No significant masses, calcifications, or other findings are seen in either breast. There has been no significant interval change. IMPRESSION: NEGATIVE There is no mammographic evidence of malignancy. A 1 year screening mammogram is recommended. This exam was interpreted at Station ID: [id number]. NOTE: For mammograms, a report in lay terms will be sent to the patient. Approximately 15% of breast malignancies will not be visualized mammographically. In the management of a palpable breast mass, a negative mammogram must not discourage biopsy of a clinically suspicious lesion. Electronically Signed By: Hernan arriaza/luis:04/05/2020 16:09:44 letter sent: Normal Exam ACR BI-RADS Category 1: Negative 3341F
== END ==
PROVIDERS: PCP Internal Medicine; Referring Provider Internal Medicine; Visit Provider Internal Medicine
DX: Z12.31 Encounter for screening mammogram for malignant neoplasm of breast (principal)
CPT/HCPCS: 77063; 77067

== ENCOUNTER → 2020-12-28 09:09 | Outpatient (CLI) | payer MEDICARE, BC, SELFPAY ==
[2020-01-28 16:28] VITALS: BMI 34.2
--- NOTE | 2020-12-28 09:10 | DI.MRI.S_ITS ---
PROCEDURE: MR LUMBAR SPINE WO CON INDICATIONS: LUMBAR PAIN TECHNIQUE: Noncontrast sagittal T1 spin echo and T2 fast echo, sagittal STIR, axial T1 and T2 fast spin echo through the lumbar spine. In cases with scoliosis, additional coronal T2 fast spin echo may be performed. COMPARISON: Outside Facility, RG, MRI L-SPINE W/O CONTRAST, 06/05/2018, 13:41. [facility] [place], CR, XR LUMBAR SPINE WITH OLBIQUES PLUS FLEXION EXTENSION, 03/20/2019, 13:47. FINDINGS: Image quality: Excellent. Alignment and Curvature: 5 lumbar type vertebral bodies are present by plain film. There is mild, grade 1 retrolisthesis of T12 on L1, L1 on L2, L2 on L3, and L3 on L4. Mild grade 1 anterolisthesis of L5 on S1. Bone Marrow: Marrow is of normal overall signal. No acute vertebral body compression fractures. There is mild reactive signal throughout the endplates of the lumbar and lower thoracic spine. Spinal Cord: Conus medullaris terminates at the mid L1 level. Visualized cord demonstrates normal signal and size. Paraspinous Soft Tissues: No paravertebral masses. T12-L1: Moderate disc height loss and desiccation. Mild diffuse disc bulge. Mild facet and ligamentum flavum hypertrophy. Mild epidural lipomatosis. Mild canal stenosis. No foraminal stenosis. L1-L2: Moderate disc height loss and desiccation. Mild diffuse disc bulge. Mild facet and ligamentum flavum hypertrophy. Mild epidural lipomatosis. There is increased, moderate to severe canal stenosis. There is increased, moderate to severe left and moderate right foraminal stenosis. Left L1 nerve root compression. L2-L3: Moderate disc height loss and desiccation. Moderate diffuse disc bulge. Mild facet and ligamentum flavum hypertrophy. Mild epidural lipomatosis. There is increased, moderate canal stenosis. There is increased, moderate to severe right foraminal stenosis. No change in mild left foraminal stenosis. New mild right L2 nerve root compression. L3-L4: Severe disc height loss and desiccation. Mild diffuse disc bulge. Mild facet and ligamentum flavum hypertrophy. Mild epidural lipomatosis. Mild canal stenosis. Moderate right and mild left foraminal stenosis. No significant change. L4-L5: Mild disc height loss. Moderate disc desiccation. Moderate diffuse disc bulge. Moderate facet and ligamentum flavum hypertrophy. Mild epidural lipomatosis. There is increased, severe canal stenosis. Increased, moderate right and moderate to severe left foraminal stenosis with new mild left L4 nerve root compression. L5-S1: Moderate disc height loss and desiccation. Mild diffuse disc bulge. Moderate bilateral facet hypertrophy. Moderate canal stenosis. Moderate subarticular foraminal stenosis bilaterally. No significant change. IMPRESSION: 1. Multilevel degenerative disc and facet disease, as well as ligamentum flavum hypertrophy and epidural lipomatosis. 2. Multilevel canal stenoses, worst at L1-L2 and L4-L5 as described above. 3. Multilevel foraminal stenoses, worst at L1-L2, L2-L3, and L4-L5, where there is associated intraforaminal nerve root compression. Recommend correlation with clinical symptoms to ascertain relevance of these findings. Dictated by: Doni Pagan M.D. on 12/30/2020 at 9:46 Approved by: Doni Pagan M.D. on 12/30/2020 at 9:52
== END ==
PROVIDERS: PCP Internal Medicine; Referring Provider Physical Medicine & Rehabilitation; Visit Provider Physical Medicine & Rehabilitation
DX: M47.816 Spondylosis without myelopathy or radiculopathy, lumbar region (principal); M47.817 Spondylosis without myelopathy or radiculopathy, lumbosacral region; M48.061 Spinal stenosis, lumbar region without neurogenic claudication; M48.07 Spinal stenosis, lumbosacral region; M51.26 Other intervertebral disc displacement, lumbar region; M51.27 Other intervertebral disc displacement, lumbosacral region
CPT/HCPCS: 72148

== ENCOUNTER → 2021-03-01 15:27 | Outpatient (CLI) | payer MEDICARE, BC, SELFPAY ==
[2020-01-28 16:28] VITALS: BMI 34.2
[2021-03-01 17:57] LABS: Add Manual Diff / Slide Review NO; Basophils Absolute Auto 0 /uL (0-100); Basophils Percent Auto 0.3 % (0-2); Eosinophils Absolute Auto 100 /uL (0-450); Eosinophils Percent Auto 1.6 % (2-4); Hematocrit 36.7 % (36-46); Hemoglobin 12.4 g/dL (12.0-16.0); Lymphocytes Absolute Auto 1400 /uL (1100-4500); Lymphocytes Percent Auto 23.1 % (25-40); Mean Corpuscular HGB Conc 33.9 % (30-36); Mean Corpuscular Hemoglobin 33.2 PG (26-34); Mean Corpuscular Volume 97.9 fL (80-100); Monocytes Absolute Auto 500 /uL (0-900); Monocytes Percent Auto 8.8 % (3-14); Neutrophils Absolute Auto 3900 /uL (1500-7000); Neutrophils Percent Auto 66.2 % (50-75); Platelet Count 205 X10^3/uL (150-400); Red Blood Cell Count 3.75 X10^6/uL (4.0-5.2); Red Cell Distribution Width 13.2 % (11.6-14.8); White Blood Cell Count 5.9 X10^3/uL (4.5-11.0)
[2021-03-01 18:19] LABS: Alanine Aminotransferase 29 IU/L (<35); Albumin 4.2 g/dL (3.5-5.0); Albumin Globulin Ratio 1.5 (1.0-2.8); Alkaline Phosphatase 79 U/L (38-126); Aspartate Aminotransferase 38 IU/L (14-36); BUN Creatinine Ratio 31.1 (6-22); Bilirubin Total 0.5 mg/dL (0.2-1.3); Blood Urea Nitrogen 28 mg/dL (7-17); Calcium 9.3 mg/dL (8.4-10.2); Carbon Dioxide 26 mmol/L (22-32); Chloride 108 mmol/L (98-107); Estimated Glomerular Filt Rate > 60.0 mL/min (>60); Globulin 2.8 g/dL (1.7-4.1); Glucose 109 mg/dL (80-110); HEMOLYSIS < 15 (0-50); Potassium 3.8 mmol/L (3.4-5.1); Sodium 142 mmol/L (137-145); Uric Acid 8.5 mg/dL (2.5-6.2)
== END ==
PROVIDERS: PCP Internal Medicine; Referring Provider Internal Medicine Rheumatology; Visit Provider Internal Medicine Rheumatology
DX: M54.5 Low back pain (principal); Z79.899 Other long term (current) drug therapy
CPT/HCPCS: 36415; 80053; 84550; 85025

== ENCOUNTER → 2021-04-11 11:32 | Outpatient (CLI) | payer MEDICARE, OTHER, SELFPAY ==
[2020-01-28 16:28] VITALS: BMI 34.2
--- NOTE | 2021-04-11 11:34 | DI.MG.S_ITS ---
BILATERAL DIGITAL SCREENING MAMMOGRAM 3D/2D WITH CAD: 04/11/2021 CLINICAL: Routine screening. Comparison is made to exams dated: 04/05/2020 mammogram, 03/28/2019 mammogram - [facility], and 03/19/2017 mammogram - [facility], [place]. There are scattered fibroglandular elements in both breasts. Current study was also evaluated with a Computer Aided Detection (CAD) system. No significant masses, calcifications, or other findings are seen in either breast. There has been no significant interval change. IMPRESSION: NEGATIVE There is no mammographic evidence of malignancy. A 1 year screening mammogram is recommended. This exam was interpreted at Station ID: [id number]. NOTE: For mammograms, a report in lay terms will be sent to the patient. Approximately 15% of breast malignancies will not be visualized mammographically. In the management of a palpable breast mass, a negative mammogram must not discourage biopsy of a clinically suspicious lesion. Electronically Signed By: Mauricio lowery/luis:04/11/2021 12:10:34 letter sent: Normal Exam ACR BI-RADS Category 1: Negative 3341F
== END ==
PROVIDERS: PCP Internal Medicine; Referring Provider Internal Medicine; Visit Provider Internal Medicine
DX: Z12.31 Encounter for screening mammogram for malignant neoplasm of breast (principal)
CPT/HCPCS: 77063; 77067

== ENCOUNTER → 2021-06-14 10:01 | Outpatient (CLI) | payer MEDICARE, OTHER, SELFPAY ==
[2020-01-28 16:28] VITALS: BMI 34.2
--- NOTE | 2021-06-14 10:03 | DI.RAD.S_ITS ---
PROCEDURE: XR DEXA AXIAL SKELETON INDICATIONS: Asymptomatic menopausal state COMPARISON: [facility], CR, XR DEXA AXIAL SKELETON, 03/27/2019, 10:32. FINDINGS: This blank DEXA report has been sent in error by the PACS system. The correct and complete report will be forthcoming in 1-2 days. Thank you for your patience and understanding. Dictated by: Jennifer Martin MD, PhD on 06/14/2021 at 12:48 Approved by: Jennifer Martin MD, PhD on 06/14/2021 at 12:48
== END ==
PROVIDERS: PCP Internal Medicine; Referring Provider Internal Medicine; Visit Provider Internal Medicine
DX: Z78.0 Asymptomatic menopausal state (principal); Z13.820 Encounter for screening for osteoporosis; M45.9 Ankylosing spondylitis of unspecified sites in spine
CPT/HCPCS: 77080

== ENCOUNTER → 2021-07-04 09:07 | Outpatient (CLI) | payer MEDICARE, OTHER, SELFPAY ==
[2020-01-28 16:28] VITALS: BMI 34.2
[2021-07-04 11:17] LABS: Add Manual Diff / Slide Review NO; Basophils Absolute Auto 0 /uL (0-100); Basophils Percent Auto 0.3 % (0-2); Eosinophils Absolute Auto 100 /uL (0-450); Eosinophils Percent Auto 3.3 % (2-4); Hematocrit 39.5 % (36-46); Hemoglobin 13.5 g/dL (12.0-16.0); Lymphocytes Absolute Auto 1400 /uL (1100-4500); Lymphocytes Percent Auto 32.5 % (25-40); Mean Corpuscular HGB Conc 34.1 % (30-36); Mean Corpuscular Hemoglobin 32.3 PG (26-34); Mean Corpuscular Volume 94.8 fL (80-100); Monocytes Absolute Auto 300 /uL (0-900); Neutrophils Absolute Auto 2400 /uL (1500-7000); Neutrophils Percent Auto 55.9 % (50-75); Platelet Count 220 X10^3/uL (150-400); Red Blood Cell Count 4.17 X10^6/uL (4.0-5.2); Red Cell Distribution Width 12.7 % (11.6-14.8); White Blood Cell Count 4.3 X10^3/uL (4.5-11.0)
[2021-07-04 11:33] LABS: Appearance Urine UA SL CLOUDY; Bilirubin Urine UA NEGATIVE (NEGATIVE); Color Urine UA YELLOW; Glucose Urine UA NEGATIVE (Negative); Ketones Urine UA NEGATIVE (NEGATIVE); Leukocyte Esterase Urine UA NEGATIVE (NEGATIVE); Nitrite Urine UA NEGATIVE (Negative); Occult Blood Urine UA TRACE-LYSED (Negative); Protein Urine UA NEGATIVE (Negative); Urobilinogen Urine UA 0.2 E.U./dL (0.2)
[2021-07-04 11:42] LABS: Hemoglobin A1C% w Est Avg Glu 4.9 % (4.0-6.0)
[2021-07-04 12:03] LABS: BUN Creatinine Ratio 36.8 (6-22); Blood Urea Nitrogen 32 mg/dL (7-17); Calcium 9.6 mg/dL (8.4-10.2); Carbon Dioxide 31 mmol/L (22-32); Chloride 105 mmol/L (98-107); Estimated Glomerular Filt Rate > 60.0 mL/min (>60); Glucose 82 mg/dL (80-110); HEMOLYSIS < 15 (0-50); Potassium 4.8 mmol/L (3.4-5.1); Sodium 139 mmol/L (137-145)
[2021-07-04 12:28] LABS: Bacteria Urine Moderate (10-30); Culture Indicated Urine Cult Not Indicated; RBC Urine 0-1/HPF (0-5/HPF); Squamous Epithelial Cell Urine 10-30 /HPF (0-5/HPF); WBC Urine 0-1/HPF (0-5/HPF)
== END ==
PROVIDERS: PCP Internal Medicine; Referring Provider Orthopaedic Surgery; Visit Provider Orthopaedic Surgery
DX: Z01.812 Encounter for preprocedural laboratory examination (principal); Z01.818 Encounter for other preprocedural examination; R73.9 Hyperglycemia, unspecified; N39.0 Urinary tract infection, site not specified
CPT/HCPCS: 36415; 80048; 81001; 83036; 85025; 93005

== ENCOUNTER → 2021-08-14 09:01 | Outpatient (CLI) | payer MEDICARE, OTHER, SELFPAY ==
[2020-01-28 16:28] VITALS: BMI 34.2
[2021-08-14 16:33] LABS: COVID19 -Nasal RAPID Negative (Negative)
== END ==
PROVIDERS: PCP Internal Medicine; Visit Provider Family Medicine Sleep Medicine
DX: Z20.822 Contact with and (suspected) exposure to COVID-19 (principal)
CPT/HCPCS: 87635; C9803

== ENCOUNTER 2021-08-15 09:02 | Day surgery (SDC) | payer MEDICARE, OTHER, SELFPAY ==
[2020-01-28 16:28] VITALS: BMI 34.2
[2021-08-03 08:50] VITALS: BMI 34.4
[2021-08-15] VITALS (10 sets, daily range): BP systolic 106–135; BP diastolic 62–83; PULSE 64–83; RESP 13–19; TEMP 36.4–36.8; O2SAT 95–99; BMI 34.4
--- NOTE | 2021-08-15 06:00 | DI.RAD.S_ITS ---
PROCEDURE: XR KNEE LT 1TO2V INDICATIONS: prosthesis placement TECHNIQUE: 2 views of the knee were acquired. COMPARISON: [facility], CR, XR KNEE RT 1TO2V, 04/01/2019, 18:15. FINDINGS: Bones: No fractures or dislocations. No suspicious bony lesions. Knee arthroplasty has been performed. Soft tissues: No joint effusion. No suspicious soft tissue calcifications. IMPRESSION: Expected appearance of knee arthroplasty. Dictated by: oDni Pagan M.D. on 08/15/2021 at 16:34 Approved by: Doni Pagan M.D. on 08/15/2021 at 16:34
[2021-08-15] MEDS: PREGABALIN 75 MG CAPSULE PO (09:41)
[2021-08-15] MEDS: CELECOXIB 200 MG CAPSULE PO (09:41)
[2021-08-15] MEDS: ACETAMINOPHEN 325 MG TABLET 975 MG PO (09:41)
[2021-08-15] MEDS: VANCOMYCIN 1,000 MG/200 ML PIGGYBACK 200 MG IV (10:00)
[2021-08-15] MEDS: LACTATED RINGERS 1,000 ML 42 ML IV (10:10)
--- NOTE | 2021-08-15 10:22 | PM.PREOP ---
Pre-operative Note COVID-19 COVID-19 status: Negative Criteria for continued procedure: Continuing or worsening of significant or severe pain Interval Note History & Physical reviewed/Exam performed by Physician: Yes Changes to H&P: No
--- NOTE | 2021-08-15 11:06 | SUR.OPER ---
Supine on padded OR bed. Pillow under head, arms secured on padded armboards <90 degree abduction. Safety belt across torso. Non-operative leg secured with tape over blanket over lower leg. Operative leg secured in DeMayo/Cr/Nathe positioner. Foam padded brace at thigh of operative leg.
--- NOTE | 2021-08-15 11:46 | PM.OP.1 ---
Operative Date/Time/Diagnoses Date of procedure: 08/15/21 Time of procedure: 12:10 Pre-op diagnosis: Left knee osteoarthritis Post-op diagnosis: same Procedure & Clinicians Procedure: Left total knee arthroplasty Same procedure as scheduled: Yes Indications: The patient has had progressively worsening left knee pain with radiographic changes consistent with arthritis. Non-operative management has failed and the patient has requested total knee replacement. The risks, benefits and alternatives to surgery were discussed with the patient prior to proceeding. Risks discussed included, but were not limited to, failure to relieve pain, stiffness, infection, nerve damage, deep venous thrombosis, pulmonary embolism, stroke, coma, heart attack, permanent paralysis and , as well as the potential need for eventual revision of the prosthetic. Surgeon: Rebeca Vazquez Vice President Client Services: Rosey Harrington Anesthesia Type: General Operative Notes Findings: Severe left knee osteoarthritis, good stability and range of motion Closure Type: primary Specimen(s): none sent Prosthetic devices, grafts, tissues, transplants, or devices: Vazquez [employer] Nephew Journey BCS 2 size 6 femur, size 4 tibia, +10 poly, 35 x 9 mm patella Applied: drain(s) Estimated Blood Loss (mL): 250 Blood products transfused: none Tourniquet time (min): 84 Procedure in detail: The patient was seen in the pre-operative area, where the patient identified the left knee as the operative site and this was marked with my initials. The patient received pre-operative antibiotics, and was taken to the operating room and placed on the operative table in the supine position. After satisfactory anesthesia, a maintenance data analyst out was performed. The left leg was encircled with a tourniquet about the proximal thigh, and the leg was prepared from the toes to the tourniquet with ChloroPrep in the usual fashion and draped through sterile drapes. The leg was elevated and exsanguinated with Eschmark bandage and the tourniquet inflated to [250] mmHg pressure. The knee was approached through an approximately 18 cm incision centered over the patella and carried into the knee through a medial parapatellar arthrotomy. A portion of the medial and lateral meniscus was resected. Soft tissue was carefully mobilized around the patella the patella was measured with a caliper. Bone was resected from the patella and the patellar height was reconstituted with up an appropriate sized patellar component. A cover was then placed on the patella. A small amount of additional medial and lateral meniscus was resected. The distal femur was cut at 5?. A [+2] cut was used. It looked like an appropriate distal femoral cut and the cut was made without difficulty. An extramedullary guide was used for the tibial cut. 10 mm was resected off the least affected side.The tibia was prepared. The rotation was assessed. The patient was placed in extension residual medial and lateral meniscus as well as any residual bone was carefully resected. [No] additional tibia was resected. Hemostasis was achieved especially posteriorly. Additional local was injected into the posterior capsule. The extension gap was assessed and additional releases for gap balancing were performed as necessary. There was some attenuation of the popliteaus along the tibia. It was checked with the gap elementary science teacher. The femoral component was trial was placed and the notch was finished. The rotation was assessed and the appropriate size femoral guide was placed on the distal femur and finishing cuts were made. There was no evidence of notching. The anterior, posterior and chamfer cuts were then made. The posterior osteophytes and soft tissues were then removed. The posterior capsule was injected with part of a mixture of 60 ml 0.25% Marcaine mixed with 20 ml Exparel for post operative pain control. The remainder of this mixture was injected into the capsule and subcutaneous tissues during cement curing. The tibial and femoral components were then placed and the knee placed through a range of motion. Range of motion was [0-130], with good stability throughout the range. The trials were then removed, and the tibia was finished. The bone was prepared with pulsatile lavage, and dried with a sponge. Cement was applied and the final prosthetics placed. Excess cement was removed during and after cement curing. A brief Betadine soak was performed. After confirming there was no extruded cement posteriorly, the final tibial insert was placed. The knee was copiously irrigated and the tourniquet deflated. Hemostasis was obtained with the hemovac. A drain was placed and brought out superolaterally. The capsule was closed with interrupted nonabsorbable suture. The subcutaneous layer was closed with barbed sutures, and the skin with a running 3-0 V-Lock suture and Surgical glue. An Aquacel Ag dressing was applied and the patient was taken to recovery having tolerated the procedure well. Complications: none Post-operative Condition: stable Disposition: Acute Care Plan for aftercare: The patient will be maintained on a standard total knee replacement protocol with weight bearing as tolerated. The patient will receive aspirin and sequential compression devices for DVT prophylaxis. The patient will be discharged home when safe for the home environment.
[2021-08-15] MEDS: CEFAZOLIN 2 GM/20 ML SYRINGE IV ×2 (12:08→21:33)
[2021-08-15] MEDS: TRANEXAMIC ACID 1,000 MG VIAL 1000 MG INJ ×2 (12:08→13:49)
[2021-08-15] MEDS: BUPIVACAINE 0.25% (PF) 60 ML, EPINEPHrine 0.3 MG INJ (12:23)
[2021-08-15] MEDS: BUPIVACAINE LIPOSOME 266 MG/20 ML VIAL INJ (12:23)
[2021-08-15] MEDS: SODIUM CHLORIDE IRRIG SOLUTION 250 ML, POVIDONE-IODINE SPONGE STICKS 1 APPLIC IRR (12:24)
--- NOTE | 2021-08-15 14:41 | SUR.PHASEI ---
Report to Tayla
--- NOTE | 2021-08-15 15:30 | PT.IIE ---
Current Diagnoses Unilateral primary osteoarthritis, left knee (08/15/21) Surgery Performed Operation Date: 08/15/21 11:15 Actual Procedures p Total Knee Arthroplasty, Left(Left) - Rebeca Vazquez MD Medical History (Last Updated 08/03/21 @ 09:09 by Erica Leong RN) Anxiety Arthritis Depression Easy bruisability GERD (gastroesophageal reflux disease) Gout HTN (hypertension) Osteoarthritis Physical Therapy Inpatient Evaluation/Re-Eval M1 PT/OT-IP Prior Functional Status Start: 08/15/21 17:46 Freq: NEEDED Status: Active Protocol: Document 08/15/21 15:30 AB (Rec: 08/15/21 17:58 AB [id number]) Medical Review Prior Functional Status Medical History Reviewed Yes Communication able to make needs known Mobility and Gait pt tated that she is modified independent with all mobilities and ambulation without AD Social History Household Members spouse Living Arrangements House Number of Floors (Floors) One Floor Number of Stairs To Enter/Railing? 1 step to enter Home Environment High Toilet,Walk in Shower Home Equipment Four Wheel Walker,Straight Cane,Raised Toilet Seat w/ Armrests,Shower Seat without Backrest M2 PT-IP Current Condition Start: 08/15/21 17:46 Freq: NEEDED Status: Active Protocol: Document 08/15/21 15:30 AB (Rec: 08/15/21 17:58 AB [id number]) Physical Therapy Current Condition Current Condition Evaluation Date 08/15/21 Treatment Diagnosis s/p L TKA; difficulty in walking Onset Date 08/15/21 M3 PT-IP Subjective Start: 08/15/21 17:46 Freq: NEEDED Status: Active Protocol: Document 08/15/21 15:30 AB (Rec: 08/15/21 17:58 AB [id number]) Subjective Physical Therapy Visit Type Type Initial Evaluation Visit Start Time 15:30 Visit Stop Time 16:05 Total Visit Minutes 35 Number of PRINTING PRESS MACHINIST Visits 0 Physical Therapy Visit Comments Patient Comments pt wants to go home today if possible Therapy Pain Assessment Pain Present Pain Present Denied Pain M4 PT-IP Mobility and Gait Start: 08/15/21 17:46 Freq: NEEDED Status: Active Protocol: Document 08/15/21 15:30 AB (Rec: 08/15/21 17:58 AB [email or web address]) PT-Bed Mobility Assessment Supine to Sit Supine to Sit Standby Assistance Sit to Supine Sit to Supine Standby Assistance PT-Transfer Assessment Sit to and From Stand Sit to and from Stand Moderate Assistance,1 Person Assistance,Use of Upper Extremities Equipment Transfer Assistive Device Gait Belt,Front Wheeled Walker Orthotic/Prosthetic Devices or Brace: No Comments Mobility Comments pt still slightly numb on BLE but able to move. stated more numbness on upper thigh and buttocks area. BP stable throughout session: 114-127/73 -76. no c/o dizziness. completed supine to sit SBA. able to sit on EOB SBA. c/o more of buttocks numbness in sitting. completed sit to stand mod A and max cues for steadiness. unsteady standing with slight decrease in trunk control and pt c/o tingling on BLE. instructed pt to take steps towards HOB mod to max A and cues. opted not to ambulate further for safety reasons until pt has more sensation and control of upper legs and trunk. pt completed sit to supine SBA. positioned pt on the bed. Pt agreed that she is not ready to go home. spouse came in towards end of PT session. agreed to do caregiver training tomorrow at 930 am. call light and table placed within reach. informed nurse regarding pt's mobility. Gait Assessment Comments Gait Comments steps towards HOB mod A and max cues for steadiness PT-Balance Assessment Sitting Balance and Reactions Static Sitting Balance Ability Good Dynamic Sitting Balance Ability Fair Standing Balance and Reactions Static Standing Balance Ability Poor Dynamic Standing Balance Ability Poor Device Used FWW M5 PT-IP Objective Assessments Start: 08/15/21 17:46 Freq: NEEDED Status: Active Protocol: Document 08/15/21 15:30 AB (Rec: 08/15/21 17:58 AB [id number]) Orientation Orientation/Cognition Level of Alertness Alert Orientation Name,Place,Situation Language Function Ability No Deficits Noted Safety Awareness Understands Safety Issues Memory Description No Deficits Noted Gross Range of Motion Lower Extremity ROM Assessment Within Functional Limits Strength Lower Extremity Strength Assessment Left Impaired Hip 4-/5 Knee 4-/5 Coordination Assessment Gross Coordination Gross Coordination WNL Sensation Assessment Sensation Gross Sensation Right LE Impaired,Left LE Impaired Light Touch Impaired Proprioception (Position) Impaired Sensation Description Tingling Muscle Tone Muscle Tone WNL Yes M6 PT-IP Treatment Start: 08/15/21 17:46 Freq: NEEDED Status: Active Protocol: Document 08/15/21 15:30 AB (Rec: 08/15/21 17:58 AB [id number]) Physical Therapy Treatment Education Education Provided Precautions,Weight Bearing Status,Post-Op Packet,Safety M7 PT-IP Assessment and Plan Start: 08/15/21 17:46 Freq: NEEDED Status: Active Protocol: Document 08/15/21 15:30 AB (Rec: 08/15/21 17:58 AB [id number]) PT Summary Assessment and Plan Potential Rehabilitation Potential Fair Status of Condition at Evaluation Evolving Summary Impairments Pain,ROM,Strength,Balance, Coordination,Sensation,Tone, Cognition,Bed Mobility, Transfers,Gait,Activity Tolerance Assessment Summary pt s/p L TKA and just had surgery late morning and still has tingling/numbness on BLE. pt was hoping to go home today but has decrease sensation affecting motor control and will not be safe to ambulate or go home at this time. caregiver training set up for tomorrow at 930 am. will continue to assess progress. Goals Bed Mobility Goal Independent Transfer Goal Independent,Front Wheeled Walker,Four Wheeled Walker Gait Goal Independent,Front Wheel Walker ,Four Wheel Walker Gait Distance 200 Other Goals up/down 1 steps using 4WW CGA Days to Meet Goals 5 Frequency of Treatment Frequency Of Treatment Twice a Day Treatment Plan Physical Therapy Treatment Plan Bed Mobility Training,Transfer Training,Gait Training, Therapeutic Exercise,Balance Retraining,Post Op Education, Discharge Planning,Hot or Cold Pack,Neuromuscular Re-ed, Coordination Retraining,Manual Therapy Weight Bearing Status Weight Bearing Status Weight Bear as Tolerated Allowed Weight Bearing Amount (enter % LLE WBAT or #) (%) Recommendations To Nursing Amount of Assist Needed 1 Person Assist Discharge Recommendations PT Discharge Recommendations Home with Assistance, Outpatient PT Equipment Needed for Home Before FWW if not safe with 4WW Discharge Transportation Needs at Discharge Private Vehicle
[2021-08-15] MEDS: ACETAMINOPHEN 325 MG TABLET 650 MG PO ×2 (16:14→21:35)
[2021-08-15] MEDS: IBUPROFEN 400 MG TABLET PO ×2 (16:14→21:35)
[2021-08-15] MEDS: LACTATED RINGERS 1,000 ML 100 ML IV (16:15)
[2021-08-15] MEDS: OXYCODONE IR 10 MG TABLET PO ×2 (18:22→21:33)
[2021-08-15] MEDS: ASPIRIN EC 81 MG TABLET PO (21:33)
[2021-08-15] MEDS: DOCUSATE 100 MG CAPSULE PO (21:35)
[2021-08-16] MEDS: IBUPROFEN 400 MG TABLET PO ×3 (00:17→08:04)
[2021-08-16] MEDS: LACTATED RINGERS 1,000 ML 100 ML IV (00:20)
[2021-08-16 00:32] VITALS: BP 113/62; PULSE 65; RESP 18; TEMP 36.6; O2SAT 95
[2021-08-16 03:15] VITALS: BP 123/67; PULSE 61; RESP 18; TEMP 36.7; O2SAT 96
[2021-08-16] MEDS: CEFAZOLIN 2 GM/20 ML SYRINGE IV (04:02)
[2021-08-16] MEDS: PANTOPRAZOLE DR 20 MG TABLET PO (05:02)
[2021-08-16 05:14] LABS: Hemoglobin 11.3 g/dL (12.0-16.0)
--- NOTE | 2021-08-16 07:49 | P.DS_ITS ---
History of Present Illness History of Present Illness Date Patient Seen: 08/16/21 Time Patient Seen: 07:30 Chief complaint: Knee pain Narrative: Patient states her left knee pain is [id number]. Denies fever or chills. No nausea vomiting. Her is home to assist her. Discharge Providers Provider Discharge Date: 08/16/21 Primary care physician: Yojana Ríos MD Consults: 08/15/21 06:00 Consult to Anesthesiology Routine Comment: Consulting Provider: Anesthesiologist Reason for consultation: Regional block for post operative pain control 08/15/21 14:52 Consult to Discharge Planning Routine Comment: Consult to Physical Therapy Evaluate & Treat Comment: Physician Instructions: postop TKA protocol Consult to Respiratory Therapy Evaluate & Treat Comment: Physician Instructions: Evaluate and treat Discharge provider: Kenrick Rider PA-C Summary Hospital Course Discharge Diagnosis: Left knee osteoarthritis Hospital Course: Left total knee arthroplasty Same procedure as scheduled: Yes Indications: The patient has had progressively worsening left knee pain with radiographic changes consistent with arthritis. Non-operative management has failed and the patient has requested total knee replacement. The risks, benefits and alternatives to surgery were discussed with the patient prior to proceeding. Risks discussed included, but were not limited to, failure to relieve pain, stiffness, infection, nerve damage, deep venous thrombosis, pulmonary embolism, stroke, coma, heart attack, permanent paralysis and , as well as the potential need for eventual revision of the prosthetic. Surgeon: Rebeca Vazquez Compressor Station Chief Engineer: Rosey Harrington Anesthesia Type: General Operative Notes Findings: Severe left knee osteoarthritis, good stability and range of motion Closure Type: primary Specimen(s): none sent Prosthetic devices, grafts, tissues, transplants, or devices: V[employer]quez [employer] Nephew Journey BCS 2 size 6 femur, size 4 tibia, +10 poly, 35 x 9 mm patella Applied: drain(s) Estimated Blood Loss (mL): 250 Blood products transfused: none Tourniquet time (min): 84 Patient admitted to the hospital for left total knee arthroplasty. Patient consented to the same. Patient taken operating room underwent left total knee arthroplasty. Patient back in her room recovering well as in stable condition. Patient will be discharged home today in stable condition. Exam Vital Signs (past 8 hours): - 08/16/21 00:32 08/16/21 03:15 Temperature 97.8 F 98.1 F Pulse Rate 65 61 Respiratory Rate 18 18 Blood Pressure 113/62 123/67 Pulse Oximetry 95 96 Oxygen Delivery Method Room Air Oxygen Flow Rate 0 Narrative Exam Narrative: 66-year-old female resting comfortably in bed in no apparent distress. Dressing is Clean, dry, intact.. Motor functions intact bilateral lower extremities. Sensation grossly intact to light touch bilateral lower extremities. Objective Labs Result Diagrams: 08/16/21 04:55 Labs: Laboratory Results - last 24 hr 08/16/21 04:55 Hgb 11.3 L Hct 34.0 L PFSH Medical History Anxiety Arthritis Depression Easy bruisability GERD (gastroesophageal reflux disease) Gout HTN (hypertension) Osteoarthritis Surgical History H/O arthroscopic knee surgery History of total right knee replacement (04/01/19) Hx of bariatric surgery (~2008) Hx of cervical spine surgery (~2014) Social History household members: spouse Smoking Status: Never smoker alcohol intake: current Discharge Assessment & Plan Assessment and Plan Assessment: Patient progressing as expected status post left total knee arthroplasty Plan of Treatment: Discharge home today in stable condition Discharge Plan Discharge Plan Patient Disposition: Home Discharge orders & Medications Discharge Orders: Discharge (Order); Ordered 08/16/21 Ordered By: Kenrick Rider Prescriptions: New acetaminophen 325 mg Tablet 650 mg PO TID Qty: 60 0RF polyethylene glycol 3350 17 gram Powder In Packet 17 gm PO DAILY PRN (Reason: Constipation) Qty: 20 0RF aspirin 81 mg Tablet,Delayed Release (Dr/Ec) 81 mg PO BID Qty: 30 0RF ibuprofen 400 mg Tablet 400 mg PO Q4HR Qty: 60 0RF oxycodone 5 mg Tablet 5 mg PO Q3HR PRN (Reason: Pain, Moderate (4-6)) Qty: 60 0RF Continued citalopram 20 MG tablet 10 mg PO QDAY Qty: 0 0RF omeprazole 20 mg Capsule,Delayed Release(Dr/Ec) 20 mg PO DAILY 0RF lisinopril 10 mg Tablet 10 mg PO DAILY 0RF Discontinued diclofenac sodium 50 mg Tablet,Delayed Release (Dr/Ec) 50 mg PO DAILY 0RF Follow up/Referrals: Rebeca Vazquez MD [Physician] - (2 weeks) Yojana Ríos MD [Primary Care Provider] - Diet/Activity/Treatments Diet: Diet as Tolerated Activity: Weight-bearing as tolerated Cold/Heat Therapy: Ice as needed Skin/Wound/Dressing Care Report to your healthcare provider any signs of infection, such as:: chills, fever, increased pain, unusual drainage and unusual redness Dressing: May remove Neel wrap in 24-48 hours, leave dressing in place Visit Report/Discharge Packet Instructions: DI for Knee Replacement, How to Prevent Falls, DI for Pres cription Opioid Use Stand Alone Forms: Surgery Discharge Discharge Data Primary Care Provider: Yojana Ríos Attending Provider: Rebeca Vazquez
[2021-08-16 08:00] VITALS: BP 133/74; PULSE 61; RESP 16; TEMP 36.6; O2SAT 99
[2021-08-16] MEDS: DOCUSATE 100 MG CAPSULE PO (08:04)
[2021-08-16] MEDS: CITALOPRAM 10 MG TABLET 20 MG PO (08:04)
[2021-08-16] MEDS: ASPIRIN EC 81 MG TABLET PO (08:04)
[2021-08-16] MEDS: ACETAMINOPHEN 325 MG TABLET 650 MG PO (08:05)
[2021-08-16] MEDS: lisinopriL 10 MG TABLET PO (08:05)
[2021-08-16] MEDS: OXYCODONE IR 5 MG TABLET PO (09:10)
--- NOTE | 2021-08-16 09:14 | CM.DANOTE ---
DCP: Case received, EMR reviewed and met with patient. Introduced self and role. Was able to obtain information regarding her baseline activity status prior to surgery. DCP assessment completed with information currently available. Patient is a 66 year old female who admitted yesterday morning to the care of the orthopedic team. PCP: Dr. Yojana Ríos. Payer: confirmed: Medicare/[facility]. Patient came to the hospital via private vehicle for a surgical procedure. Patient had right total knee arthroplasty. Patient has history of osteoarthritis. Met with patient in her room. She is alert and oriented, and sitting up in her chair. She resides here in [place] with her spouse, Al. 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 P: Patient is to be discharged home today with outpatient P.T. Sherice Munoz RN/Digital Marketing Program Manager Discharge Planning/Care Management CM Discharge Assessment Start: 08/16/21 09:08 Freq: Status: Active Protocol: Document 08/16/21 09:08 (Rec: 08/16/21 09:14 [id number]) Discharge Planning Assessment Advance Directives? Yes Advance Directives on File No History Provided By Patient,Medical Record Prior Living Arrangements House Household Members spouse Type of transporation used prior to Drives own vehicle admit Independent with ADL's Yes Is patient alert and oriented? Yes Caregiver for Another No Patient/Family Preference OP PT Therapy Barriers to Discharge No Discharge Plan Home Transportation Arrangement Spouse Referrals Initiated None needed Whiteboard Updated in Patient Room with Yes name and ext. # of Provider Relations Rep Review Status In Process Next Review Type Continued Stay Review Pre-Anesthesia Assessment Start: 08/03/21 08:50 Freq: Status: Active Protocol: Document 08/03/21 08:50 CAB (Rec: 08/03/21 09:21 CAB [id number]) Pre-Anesthesia Assessment PAC Comment Covid + 07/09/21. Very mild symptoms, no respiratory symptoms or fever, no hospitalization required. Preferred Name Cindi Patient Information Reviewed Via Phone Assessment Assessment Completed With Patient Diagnostic Results BMP/CMP,CBC,EKG,Urinalysis Comment Labs/ECG @ [facility] 07/04/21, COVID screen @ [facility] 08/14/21 Primary Care Provider Yojana Ríos Seen Specialist in Last 12 Months Yes Specialist Seen Orthopedist Primary Language Malaysian Preferred Language Malaysian Irrigator Overhead Required No Height 5 ft 7 in Weight 220 lb Body Mass Index (BMI) 34.4 Hearing Ability Normal Visual Assist Contacts,Glasses Dentition Type Teeth, Natural Present Barriers to Learning None Other Aids No Hx Anesthesia Reactions Yes: PONV Hx Family Anesthesia Reaction Yes: Mom (age 80) didn't wake up the same person after surgery Hx Malignant Hyperthermia No Hx Blood Transfusions No Anesthesia Review Requested No Plater Printed Circuit Board Panels No alcohol intake current alcohol intake frequency 0-2 drinks per day Smoking Status Never smoker Substance Use Type does not use Pain Present Pain Reported Musculoskeletal Symptoms Abnormal Gait,Back Pain, Difficulty Walking,Joint Pain History of Falling (Recent or History of Yes ) Patient is completely paralyzed or No completely immobile Mental Status Oriented to own ability Is patient on oxygen? No Does patient have DAVILA/SOB No Hx Sleep Apnea No Currently Taking a Beta Darwin No Can You Climb a Flight of Stairs Without Yes SOB Hx Chest Pain No Hx SOB No Hx Syncope or Dizziness No Anti-Coagulant Therapy No Has a Goldsmith Apprentice No Cardiac Testing No Hx Pacemaker/ICD No Pacemaker Rep Required? No Diet Type At Home Regular dysphagia No Gastrointestinal Symptoms Reflux Urinary Catheter Present No Hx Urinary Self Catheterization No Diabetes No Patient No Lactating No Hx Drug Resistant Organism No Presence of External or Internal Medical Yes: Gastric sleeve, cervical Devices hardware, right knee Have you had any close contact with Yes: COVID + 07/09/21, very someone diagnosed with COVID-19? mild symptoms, not hospitalized Received a COVID vaccine? No Marital Status Lives With spouse Prior Living Arrangements House Number of Floors (Floors) One Floor Support System Spouse Does the Patient Have Assistance After Yes Surgery Patient Discharge Plan Description Return Home Comment Pt not advised on length of stay per surgeon Feels Safe in Current Environment Yes Been Physically Hurt or Threatened By a No Person in Current Environment Do you have thoughts of harming yourself None or others? Are you currently considering suicide? No Do you have a plan to hurt yourself or No Plan others? Do You Have Any Spiritual Beliefs That No May Affect Your HC Choices? Do You Have Any Cultural Practices That No May Affect Your HC Choices? Comment Lutheran Who Can We Speak to About Patient's Care Family, friends Identifying Code for Release of Patient Declines to issue Information Health Care Proxy/Next of Kin Al () Health Care Proxy Emergency Contact Name Al () Emergency Contact Advance Directives? Yes Advance Directives on File No Power of Delivery Crew Member Yes Power of Delivery Crew Member Name Al () Power of Delivery Crew Member PAC Instructions Do not shave/clip surgical site,Durable medical equipment ,Medications to take/avoid, Nasal antibiotic,No ETOH/ petroleum product on skin DOS, NPO,Post-op transportation,Pre -surgical wash,Sensory aids, Sturdy shoes/comfortable clothes,Do not bring valuables and remove jewelry
--- NOTE | 2021-08-16 09:48 | PT.IPTN ---
Current Diagnoses Unilateral primary osteoarthritis, left knee (08/15/21) Surgery Performed Operation Date: 08/15/21 11:15 Actual Procedures p Total Knee Arthroplasty, Left(Left) - Rebeca Vazquez MD Physical Therapy Treatment Note M2 PT-IP Current Condition Start: 08/15/21 17:46 Freq: NEEDED Status: Discharge Protocol: Document 08/16/21 09:24 SP (Rec: 08/16/21 19:15 SP [id number]) Physical Therapy Current Condition Current Condition Evaluation Date 08/15/21 Treatment Diagnosis s/p L TKA; difficulty in walking Onset Date 08/15/21 M3 PT-IP Subjective Start: 08/15/21 17:46 Freq: NEEDED Status: Discharge Protocol: Document 08/16/21 09:24 SP (Rec: 08/16/21 19:15 SP [id number]) Subjective Physical Therapy Visit Type Type Treatment Note Visit Start Time 09:24 Visit Stop Time 09:48 Total Visit Minutes 24 Notes Vitals taken during tx: seated in chair: BP 113/69, HR 74 standing w/ FWW: BP 126/80 HR 77 in room, completed caregiver training with physical assist required throughout tx. Number of PROGRAMMING COORDINATOR Visits 1 Physical Therapy Visit Comments Patient Comments pt wants to go home today with her to assist her. Therapy Pain Assessment Pain When Pain Assessed During Mobility Pain Present Pain Present Pain Reported Location Left Knee Intensity 6 Scale Used Numeric (0 - 10) Description With Movement Pain Behaviors Facial Grimacing Pain Management Techniques Modification of Treatment,Re- positioning,Timing of Activity with Medications M4 PT-IP Mobility and Gait Start: 08/15/21 17:46 Freq: NEEDED Status: Discharge Protocol: Document 08/16/21 09:24 SP (Rec: 08/16/21 19:15 SP [id number]) PT-Transfer Assessment Sit to and From Stand Sit to and from Stand Contact Guard Assistance,Use of Upper Extremities Equipment Transfer Assistive Device Gait Belt,Front Wheeled Walker Orthotic/Prosthetic Devices or Brace: No Transfers Transfer Destination Chair Transfer Technique pt ambulated using FWW, 4WW. Transfer Ability Level of Assist Standby Assistance,Contact Guard Assistance,Use of Upper Extremities Comments Mobility Comments Pt denied dizziness, no numbness. Sit>stand CGA w/FWW. Pt ambulated 10 ft with good stability, cued for to keep contact gait belt for safety. PROGRAMMING COORDINATOR swapped out use of 4WW, adjusted personal 4WW proper height, pt stable stand not need more than light contact 4WW and support, stable. Progressed gait to PF step approx 20 ft, ascend/ descend 1 PF step w/ 4WW, provided CGA for balance and Min A for 4WW repositioning, cued safety positioning, body alignment and pt good 4WW brake mgt. no LOB, stable. Pt able to progress gait using 4WW to end of hallway and back to chair approx 120 ft , slight decrease LLE stance time, good L knee flexion and heel strike during gait phases, follow w/c safety but not needed. Pt returned to chair in room sBA. Pt states is set up for outpt therapy. Pt is ok to return home with to assist her when medically stable. Gait Assessment Gait Gait Assistance Required: Standby Assistance,Contact Guard Assist Distance (Feet) 140 Able to Maintain Weight Bearing Status Yes During Gait Assistive Devices Assistive Device Gait Belt,Front Wheeled Walker ,4 Wheeled Walker Orthotic/Prosthetic Devices or Brace: No Gait Deviations General Gait Pattern Antalgic,Decreased Stride Length,Decreased Feet Clearance Factors Limiting Gait Function Factors Limiting Gait Function Decreased Activity Tolerance, Decreased Strength,Pain Comments Gait Comments See mobility comments. Stair Climbing Assessment Evaluation Level of Assist On Stairs Contact Guard Assistance, Minimal Assistance,1 Person Assistance Devices Stair Climbing Assistive Devices Four Wheel Walker Technique/Endurance Stair Climbing Direction Ascend and Descend Stair Climbing Technique Step to Step Number of Steps Climbed 1 Stair Climbing Set # Repetitions (reps) 1 Comments Stair Climbing Comments 1 PF step w/ 4WW. See mobility comments. PT-Balance Assessment Sitting Balance and Reactions Static Sitting Balance Ability Normal Dynamic Sitting Balance Ability Good Standing Balance and Reactions Static Standing Balance Ability Good Dynamic Standing Balance Ability Fair Device Used FWW, 4WW M5 PT-IP Objective Assessments Start: 08/15/21 17:46 Freq: NEEDED Status: Discharge Protocol: Document 08/15/21 15:30 AB (Rec: 08/15/21 17:58 AB [id number]) Orientation Orientation/Cognition Level of Alertness Alert Orientation Name,Place,Situation Language Function Ability No Deficits Noted Safety Awareness Understands Safety Issues Memory Description No Deficits Noted Gross Range of Motion Lower Extremity ROM Assessment Within Functional Limits Strength Lower Extremity Strength Assessment Left Impaired Hip 4-/5 Knee 4-/5 Coordination Assessment Gross Coordination Gross Coordination WNL Sensation Assessment Sensation Gross Sensation Right LE Impaired,Left LE Impaired Light Touch Impaired Proprioception (Position) Impaired Sensation Description Tingling Muscle Tone Muscle Tone WNL Yes M6 PT-IP Treatment Start: 08/15/21 17:46 Freq: NEEDED Status: Discharge Protocol: Document 08/16/21 09:24 SP (Rec: 08/16/21 19:15 SP [id number]) Physical Therapy Treatment Education Education Provided Precautions,Weight Bearing Status,Post-Op Packet,Safety Other Treatments Other Treatment Performed Discussed post op ex, not performed, good recall and referenced provided HOs and folder. M7 PT-IP Assessment and Plan Start: 08/15/21 17:46 Freq: NEEDED Status: Discharge Protocol: Document 08/16/21 09:24 SP (Rec: 08/16/21 19:15 SP [id number]) PT Summary Assessment and Plan Potential Rehabilitation Potential Fair Status of Condition at Evaluation Evolving Summary Impairments Pain,ROM,Strength,Balance, Coordination,Sensation,Tone, Cognition,Bed Mobility, Transfers,Gait,Activity Tolerance Progress Towards Goals Progressing Toward Goals,Slow Progress due to Pain Assessment Summary Pt completed Sit<> stand CG- SBA, Gait CG- SBA with FWW initially then 4WW, good pacing, gait phases approx 120 ft. Completed 1 PF step CG balance support by , Min A for 4WW mgt. Pt is ok to return home with spouse when medically stable to assit her as needed. Already set up for outpt PT. Goals Bed Mobility Goal Independent Transfer Goal Independent,Front Wheeled Walker,Four Wheeled Walker Gait Goal Independent,Front Wheel Walker ,Four Wheel Walker Gait Distance 200 Other Goals up/down 1 steps using 4WW CGA Days to Meet Goals 5 Frequency of Treatment Frequency Of Treatment Twice a Day Treatment Plan Physical Therapy Treatment Plan Bed Mobility Training,Transfer Training,Gait Training, Therapeutic Exercise,Balance Retraining,Post Op Education, Discharge Planning,Hot or Cold Pack,Neuromuscular Re-ed, Coordination Retraining,Manual Therapy Other Recommendations and Next Treatment Gait further distances with Focus 4WW, ROM, post op ex. Weight Bearing Status Weight Bearing Status Weight Bear as Tolerated Allowed Weight Bearing Amount (enter % LLE WBAT or #) (%) Recommendations To Nursing Amount of Assist Needed Standby Assistance,1 Person Assist Discharge Recommendations PT Discharge Recommendations Home with Assistance, Outpatient PT Equipment Needed for Home Before Safe to use 4WW. Discharge Transportation Needs at Discharge Private Vehicle
--- NOTE | 2021-08-16 10:33 | PC.NURSE ---
This float RN assisted with preparing patient for discharge. Home care handouts and discharge instructions reviewed with patient and her . They state understanding and have no further questions or concerns at this time. Patient states she is cleared by PT., that she has follow up appointment with Dr. Vazquez's office scheduled, and that she has all her belongings together for dc home. IV dc'd intact. Patient instructed to call her surgeon's office with questions or concerns.
== END 2021-08-16 10:41 | disposition home or self-care (01) ==
LOC: OR 09:06 → AC 09:06
PROVIDERS: PCP Internal Medicine; Referring Provider Orthopaedic Surgery; Visit Provider Orthopaedic Surgery
PROC: 0SRD0JZ Replacement of Left Knee Joint with Synthetic Substitute, Open Approach (ICD-10-PCS; CPT 27447; principal; 2021-08-15 11:15)
DX: M17.12 Unilateral primary osteoarthritis, left knee (principal); M48.00 Spinal stenosis, site unspecified
CPT/HCPCS: 27447; 36415; 73560; 85014; 85018; 97116; 97162; C1713; C9290; J0171; J0690; J1100; J1170; J2250; J3010

== ENCOUNTER → 2021-08-21 14:55 | Outpatient (CLI) | payer MEDICARE, OTHER, SELFPAY ==
[2021-08-15 14:57] VITALS: BMI 34.4
--- NOTE | 2021-08-21 14:57 | DI.US.S_ITS ---
PROCEDURE: US PERIPH VENOUS LOW EXTREM LT INDICATIONS: RULE OUT DVT TECHNIQUE: Real-time imaging, as well as color and pulse Doppler interrogation, were performed of the lower extremity deep veins from the inguinal ligament to the popliteal fossa. COMPARISON: None. FINDINGS: The common femoral, femoral and popliteal veins are normally compressible, and free of intraluminal thrombus. Color and pulse Doppler demonstrate normal phasic intraluminal flow. There is normal augmentation response to distal compression maneuver. IMPRESSION: No deep venous thrombosis identified within the left lower extremity. Dictated by: Michael Valerio [facility] Interpreted: Segundo Fox MD on 08/21/2021 at 16:14 Transcribed by: TERRI on 08/21/2021 at 16:14 Approved by: Segundo Fox M.D. on 08/21/2021 at 16:50
== END ==
PROVIDERS: PCP Internal Medicine; Referring Provider Physician Assistant; Visit Provider Physician Assistant
DX: M17.12 Unilateral primary osteoarthritis, left knee (principal)
CPT/HCPCS: 93971

== ENCOUNTER → 2022-04-18 15:10 | Outpatient (CLI) | payer MEDICARE, OTHER, SELFPAY ==
[2021-08-15 14:57] VITALS: BMI 34.4
--- NOTE | 2022-04-18 | DI.MG.S_ITS ---
BILATERAL DIGITAL SCREENING MAMMOGRAM 3D/2D WITH CAD: 04/18/2022 CLINICAL: Routine screening. Comparison is made to exams dated: 04/11/2021 mammogram, 04/05/2020 mammogram, and 03/28/2019 mammogram - [facility]. Both breasts are almost entirely fatty (category a/<25% glandular tissue). Current study was also evaluated with a Computer Aided Detection (CAD) system. No significant masses, calcifications, or other findings are seen in either breast. There has been no significant interval change. IMPRESSION: NEGATIVE There is no mammographic evidence of malignancy. A 1 year screening mammogram is recommended. Based on the Tyrer Cuzick model (a risk assessment model) the patient's lifetime risk is 4.4% and her 10 year risk is 2.4%. According to the ACR, ACS, and NCCN guidelines, an annual breast MRI exam along with mammogram is recommended if the patient's lifetime risk is 20% or greater. This exam was interpreted at Station ID: [id number]. NOTE: For mammograms, a report in lay terms will be sent to the patient. Approximately 15% of breast malignancies will not be visualized mammographically. In the management of a palpable breast mass, a negative mammogram must not discourage biopsy of a clinically suspicious lesion. Electronically Signed By: Annabella paz/luis:04/19/2022 12:29:40 letter sent: Normal Exam ACR BI-RADS Category 1: Negative [id number]
== END ==
PROVIDERS: PCP Internal Medicine; Referring Provider Internal Medicine; Visit Provider Internal Medicine
DX: Z12.31 Encounter for screening mammogram for malignant neoplasm of breast (principal)
CPT/HCPCS: 77063; 77067

== ENCOUNTER → 2022-06-22 19:37 | Outpatient (CLI) | payer MEDICARE, OTHER, SELFPAY ==
[2021-08-15 14:57] VITALS: BMI 34.4
--- NOTE | 2022-06-22 19:38 | DI.RAD.S_ITS ---
PROCEDURE: XR LUMBAR SPINE MIN 4V INDICATIONS: BACK PAIN TECHNIQUE: 5 views of the lumbar spine were acquired, including bilateral oblique views. COMPARISON: [facility] [place], CR, XR LUMBAR SPINE WITH OLBIQUES PLUS FLEXION EXTENSION, 03/20/2019, 13:47. [facility], MR, MR LUMBAR SPINE WO CON, 12/28/2020, 9:22. FINDINGS: Bones: 5 nonrib-bearing vertebrae are present. There is a mild leftward curvature of the lumbar spine centered at L3. There is anterolisthesis of L5 on S1 measuring approximately 0.6 cm. No definite displaced pars defects. No vertebral body compression fractures. No suspicious bony lesions. There is multilevel mild to moderate degenerative disc disease throughout the lumbar spine. There is also moderate facet arthropathy in the lower lumbar spine at L4-5 and L5-S1. Soft tissues: Overlying bowel gas pattern is normal. No suspicious soft tissue calcifications. IMPRESSION: 1. Multilevel degenerative disc disease throughout the lumbar spine and moderate facet arthropathy in the lower lumbar spine. 2. Anterolisthesis at L5-S1 without definite displaced pars defects. Dictated by: Gil Russell M.D. on 06/22/2022 at 20:40 Approved by: Gil Russell M.D. on 06/22/2022 at 20:45
== END ==
PROVIDERS: PCP Internal Medicine; Referring Provider Physical Medicine & Rehabilitation; Visit Provider Physical Medicine & Rehabilitation
DX: M51.36 Other intervertebral disc degeneration, lumbar region (principal); M47.816 Spondylosis without myelopathy or radiculopathy, lumbar region; M47.817 Spondylosis without myelopathy or radiculopathy, lumbosacral region; M43.17 Spondylolisthesis, lumbosacral region; M54.9 Dorsalgia, unspecified
CPT/HCPCS: 72110

== ENCOUNTER 2022-08-21 08:19 | Outpatient (CLI) | payer MEDICARE, OTHER, SELFPAY ==
[2021-08-15 14:57] VITALS: BMI 34.4
[2022-08-21] VITALS (9 sets, daily range): BP systolic 124–150; BP diastolic 59–79; PULSE 60–66; RESP 13–24; TEMP 36.3; O2SAT 97–99
--- NOTE | 2022-08-21 08:20 | DI.RAD.S_ITS ---
PROCEDURE: PAIN L/S FACET INJ/BLK 1ST DAYAMI COMPARISON: None. INDICATIONS: SPONDYLOSIS FINDINGS: 6 images from bilateral L4-5 and L5-S1 facet joint injection. IMPRESSION: Intraprocedural fluoroscopy was provided for guidance and anatomical localization. Please see the procedure report for further details. Dictated by: Mauricio Gar M.D. on 08/21/2022 at 21:44 Approved by: Mauricio Gar M.D. on 08/21/2022 at 21:46
[2022-08-21] MEDS: BETAMETHASONE 30 MG/5 ML MDV 12 MG INJ (09:28)
[2022-08-21] MEDS: IOPAMIDOL 15 ML VIAL 3 ML INJ (09:28)
[2022-08-21] MEDS: LIDOCAINE 1% 20 ML 5 ML INJ (09:29)
[2022-08-21] MEDS: BUPIVACAINE 0.5% (PF) 10 ML VIAL 5 ML SUBCUT (09:30)
--- NOTE | 2022-08-21 09:41 | P.PCN_ITS ---
Date/Time/Diagnoses Date of procedure: 08/21/22 Time of procedure: 09:41 Pre-procedure diagnosis: 1. FACET ARTHROPATHY 2. AXIAL LBP 3. MULTILEVEL DDD Post-procedure diagnosis: same Procedure Notes Procedure: 1. FLUOROSCOPICALLY GUIDED CONTRAST CONTROLLED FACET JOINT INJECTIONS BILATERAL L4/5, L5/S1 Indications: Meche is referred by Dr. Ríos for treatment of Axial LBP Physician: Juan C Ware Total Fluoroscopy time (seconds): 18 Total sedation minutes: 17 Complications: none Procedure in detail & Post-procedure care: FINDINGS Multilevel Facet Arthropathy with Clinically significant axial LBP DESCRIPTION OF PROCEDURE Fluoroscopically guided, contrast-controlled bilateral L4/5, L5/S1 facet joint injections. Following review of allergy and review of potential side effects and complications, including, but not necessarily limited to, infection, allergic reaction, local tissue breakdown, stroke, temporary or permanent nerve injury, paralysis, and possible , the patient indicated that the patient understood and agreed to proceed. An informed consent document was signed by the patient, witnessed by a nurse, and placed in the patient's chart. Additionally, other treatment options including medications, modalities, and physical therapy were reviewed with the patient. After review of previous anaesthesic history and IV conscious sedation the patient was deemed safe to proceed with today?s procedure with IV conscious sedation as ASA class II designation. Safety time-out was performed to confirm patient ID, procedure to be performed and site of procedure. IV sedation was accomplished with a combination of 4mg of Versed was administered by the RN after DO order, titrated to patient comfort during the course of the procedure while the patient remained responsive to all verbal commands In the prone position, following sterile prep and drape of the lumbar region, the posterior aspect of the L4/5, L5/S1 facet joints were identified fluoroscopi jorge. The skin was anesthetized via a 25-gauge 1.5inch needle with 1% lidocaine solution into the corresponding facet joints. At this point, a 22- gauge 3.5-inch spinal needle was atraumatically introduced and advanced under fluoroscopic guidance into the corresponding facet joints. Following negative aspiration, injections of approximately 0.2cc of Isovue 200 confirmed interarticular placement without vascular uptake. The identical procedure was then performed at the L4/5, L5/S1 facet joints on the left. Radiological data, including multiple fluoroscopic views of the lumbosacral spine, reveal a spinal needle at the L4/5, L5/S1 facet joints bilaterally. Subsequent views show flow of contrast material both superiorly and inferiorly within the joint space without vascular or intrathecal uptake. At this point, a total of 0.5cc including a mixture of 0.25cc Marcaine and 0.25cc betamethasone was injected without complication into each of the corresponding facet joints. The patient tolerated the procedure well without signs or symptoms of complications prior to transfer to the recovery area continued monitoring without incident. The patient was then transferred to the recovery area where they were observed for an appropriate period of time after the injection. The patient reported a VAS score of 7 prior to the procedure and a post- procedure VAS of 0. POST OP INSTRUCTIONS The patient was provided a Pain Log to continue to record their response to the target-specific procedure prior to follow-up visit with their referring physician. Additionally, specific post-injection care instructions and a contact number to our office were provided if concerns arise regarding possible complications associated with the procedure are suspected.
[2022-08-21] MEDS: MIDAZOLAM 2 MG/2 ML VIAL 4 MG IV (09:45)
== END 2022-08-21 09:55 | disposition home or self-care (01) ==
LOC: RAD 08:19
PROVIDERS: PCP Internal Medicine; Referring Provider Physical Medicine & Rehabilitation; Visit Provider Physical Medicine & Rehabilitation
DX: M47.816 Spondylosis without myelopathy or radiculopathy, lumbar region (principal); M47.817 Spondylosis without myelopathy or radiculopathy, lumbosacral region; M51.36 Other intervertebral disc degeneration, lumbar region; M51.37 Other intervertebral disc degeneration, lumbosacral region
CPT/HCPCS: 64493; 64494; 99152; J0702; J2250

== ENCOUNTER 2023-02-05 08:09 | Outpatient (CLI) | payer MEDICARE, OTHER, SELFPAY ==
[2021-08-15 14:57] VITALS: BMI 34.4
[2023-02-05] VITALS (9 sets, daily range): BP systolic 99–117; BP diastolic 57–78; PULSE 64–85; RESP 11–22; TEMP 36.6; O2SAT 95–98
--- NOTE | 2023-02-05 08:10 | DI.RAD.S_ITS ---
PROCEDURE: PAIN L/S FACET INJ/BLK 1ST DAYAMI COMPARISON: [facility], , PAIN L/S FACET INJ/BLK 1ST DAYAMI, 08/21/2022, 9:24. INDICATIONS: SPONDYLOSIS FINDINGS: Fluoroscopic spot filming was performed to verify placement of spinal needles on both sides at the L4-L5 and L5-S1 levels, as labeled on the films. Appropriate location of the needle tips was confirmed by injection of iodinated contrast. IMPRESSION: Intraprocedural examination demonstrating appropriate positions of the needles. Dictated by: Renzo Blevins M.D. on 02/05/2023 at 14:56 Approved by: Renzo Blevins M.D. on 02/05/2023 at 14:58
[2023-02-05] MEDS: MIDAZOLAM 2 MG/2 ML VIAL IV (09:08)
[2023-02-05] MEDS: BETAMETHASONE 30 MG/5 ML MDV 12 MG INJ (09:13)
[2023-02-05] MEDS: LIDOCAINE 1% 20 ML 5 ML INJ (09:13)
[2023-02-05] MEDS: IOPAMIDOL 15 ML VIAL 3 ML INJ (09:13)
[2023-02-05] MEDS: BUPIVACAINE 0.5% (PF) 10 ML VIAL 5 ML INJ (09:14)
--- NOTE | 2023-02-05 09:32 | P.PCN_ITS ---
Date/Time/Diagnoses Date of procedure: 02/05/23 Time of procedure: 09:32 Pre-procedure diagnosis: 1. FACET ARTHROPATHY 2. AXIAL LBP 3. MULTILEVEL DDD Post-procedure diagnosis: same Procedure Notes Procedure: 1. FLUOROSCOPICALLY GUIDED CONTRAST CONTROLLED FACET JOINT INJECTIONS BILATERAL L4/5, L5/S1 Indications: Meche is referred by Dr. Ríos for treatment of Axial LBP Physician: Juan C Ware Total Fluoroscopy time (seconds): 18 Total sedation minutes: 18 Complications: none Procedure in detail & Post-procedure care: FINDINGS Multilevel Facet Arthropathy with Clinically significant axial LBP DESCRIPTION OF PROCEDURE Fluoroscopically guided, contrast-controlled bilateral L4/5, L5/S1 facet joint injections. Following review of allergy and review of potential side effects and complications, including, but not necessarily limited to, infection, allergic reaction, local tissue breakdown, stroke, temporary or permanent nerve injury, paralysis, and possible , the patient indicated that the patient understood and agreed to proceed. An informed consent document was signed by the patient, witnessed by a nurse, and placed in the patient's chart. Additionally, other treatment options including medications, modalities, and physical therapy were reviewed with the patient. After review of previous anaesthesic history and IV conscious sedation the patient was deemed safe to proceed with today?s procedure with IV conscious sedation as ASA class II designation. Safety time-out was performed to confirm patient ID, procedure to be performed and site of procedure. IV sedation was accomplished with a combination of 2mg of Versed was administered by the RN after DO order, titrated to patient comfort during the course of the procedure while the patient remained responsive to all verbal commands In the prone position, following sterile prep and drape of the lumbar region, the posterior aspect of the L4/5, L5/S1 facet joints were identified fluoroscopi jorge. The skin was anesthetized via a 25-gauge 1.5inch needle with 1% lidocaine solution into the corresponding facet joints. At this point, a 22- gauge 3.5-inch spinal needle was atraumatically introduced and advanced under fluoroscopic guidance into the corresponding facet joints. Following negative aspiration, injections of approximately 0.2cc of Isovue 200 confirmed interarticular placement without vascular uptake. The identical procedure was then performed at the L4/5, L5/S1 facet joints on the left. Radiological data, including multiple fluoroscopic views of the lumbosacral spine, reveal a spinal needle at the L4/5, L5/S1 facet joints bilaterally. Subsequent views show flow of contrast material both superiorly and inferiorly within the joint space without vascular or intrathecal uptake. At this point, a total of 0.5cc including a mixture of 0.25cc Marcaine and 0.25cc betamethasone was injected without complication into each of the corresponding facet joints. The patient tolerated the procedure well without signs or symptoms of complications prior to transfer to the recovery area continued monitoring without incident. The patient was then transferred to the recovery area where they were observed for an appropriate period of time after the injection. The patient reported a VAS score of 7 prior to the procedure and a post- procedure VAS of 1. POST OP INSTRUCTIONS The patient was provided a Pain Log to continue to record their response to the target-specific procedure prior to follow-up visit with their referring physician. Additionally, specific post-injection care instructions and a contact number to our office were provided if concerns arise regarding possible complications associated with the procedure are suspected.
== END 2023-02-05 09:42 | disposition home or self-care (01) ==
LOC: RAD 08:10
PROVIDERS: PCP Internal Medicine; Referring Provider Physical Medicine & Rehabilitation; Visit Provider Physical Medicine & Rehabilitation
DX: M47.816 Spondylosis without myelopathy or radiculopathy, lumbar region (principal); M47.817 Spondylosis without myelopathy or radiculopathy, lumbosacral region; M51.36 Other intervertebral disc degeneration, lumbar region; M51.37 Other intervertebral disc degeneration, lumbosacral region
CPT/HCPCS: 64493; 64494; 99152; J0702; J2250

== ENCOUNTER 2023-03-28 10:43 | Outpatient (CLI) | payer MEDICARE, OTHER, SELFPAY ==
[2021-08-15 14:57] VITALS: BMI 34.4
[2023-03-28] VITALS (9 sets, daily range): BP systolic 112–175; BP diastolic 60–74; PULSE 61–70; RESP 14–24; TEMP 36.4; O2SAT 96–99
--- NOTE | 2023-03-28 10:46 | DI.RAD.S_ITS ---
PROCEDURE: PAIN L/S FACET INJ/BLK 1ST DAYAMI INDICATIONS: SPONDYLOSIS COMPARISON: [facility], , PAIN L/S FACET INJ/BLK 1ST DAYAMI, 02/05/2023, 9:13. FINDINGS: Fluoroscopic spot filming was performed to verify placement of spinal needles at the bilateral L4, L5 and S1 pedicular level(s), as labeled on the films. Appropriate location(s) of the needle tip(s) was confirmed by injection of iodinated contrast. IMPRESSION: Access needles at the bilateral L4, L5 and S1 pedicle levels for bilateral L4, L5 and S1 medial branch blocks. Dictated by: Jennifer Martin MD, PhD on 03/28/2023 at 13:29 Approved by: Jennifer Martin MD, PhD on 03/28/2023 at 13:30
[2023-03-28] MEDS: MIDAZOLAM 2 MG/2 ML VIAL IV (11:50)
[2023-03-28] MEDS: LIDOCAINE 1% 20 ML 5 ML INJ (11:54)
[2023-03-28] MEDS: iopamidoL 15 ML VIAL 3 ML INJ (11:54)
[2023-03-28] MEDS: BUPIVACAINE 0.5% (PF) 10 ML VIAL 5 ML INJ (11:55)
[2023-03-28] MEDS: fentaNYL 100 MCG/2 ML INJ 50 MCG IV (11:58)
--- NOTE | 2023-04-09 13:38 | P.PCN_ITS ---
Date/Time/Diagnoses Date of procedure: 03/28/23 Time of procedure: 12:01 Pre-procedure diagnosis: 1. FACET ARTHROPATHY Post-procedure diagnosis: same Procedure Notes Procedure: 1. BILATERAL- L4, L5 and S1 DIAGNOSTIC MB BLOCKS with LA Anesthetic Indications: Kiana is referred by Dr. Ríos for treatment of Bilateral Axial LBP. Physician: Juan C Ware Total Fluoroscopy time (seconds): 22 Total sedation minutes: 17 Complications: none Procedure in detail & Post-procedure care: DESCRIPTION OF PROCEDURE Fluoroscopically guided, contrast-controlled bilateral L4, L5 and S1 medial branch blocks with 0.5cc of 0.5% Marcaine. Following review of allergy and review of potential side effects and complications, including, but not necessarily limited to, infection, allergic reaction, local tissue breakdown, nerve injury, paralysis, stroke and possible , the patient indicated that the patient understood and agreed to proceed. An informed consent document was signed by the patient, witnessed by a nurse, and placed in the patient's chart. After review of previous anaesthesic history and IV conscious sedation the patient was deemed safe to proceed with today's procedure with IV conscious sedation as ASA class II designation. Safety time-out was performed to confirm patient ID, procedure to be performed and site of procedure. IV sedation was accomplished with a combination of 2mg of Versed was administered by the RN after DO order, titrated to patient comfort during the course of the procedure while the patient remained responsive to all verbal commands In the prone position, following sterile prep and drape of the lumbar region, the right L4, L5 and S1 anatomical location of the medial branch of the dorsal ramus was identified fluoroscopically. Subsequently an anesthetic skin wheal using 1% lidocaine solution was initiated at each of the anatomical spots. Subsequently then a 22-gauge 3.5-inch spinal needle was atraumatically introduced and advanced under fluoroscopic guidance at each of the corresponding sites at the right L4, L5 and S1 MB. After negative aspiration, 0.2cc of Isovue 200 was injected, confirming placement without vascular or intrathecal uptake. Subsequently then 0.5cc of 0.5% Marcaine solution was injected at each of the corresponding sites at the right L4, L5 and S1 medial branch locations. The identical procedure was replicated on the left. The patient tolerated the procedure well without signs or symptoms of complications prior to transfer to the recovery area continued monitoring without incident. Post-procedure, the patient was monitored initiating provocative activities to measure the amount of relief from block of the facetogenic pain. The patient reported a VAS of 7 prior to the procedure and a post-procedure VAS of 1. It has been a pleasure to assist in the diagnostic and therapeutic care of your patient. POST OP INSTRUCTIONS The patient was provided with a Pain Log to complete over the next several hours and subsequent days prior to the patient's follow up with the ordering physician. If the patient has synthetic gem press operator relief to the solution applied, then they may be a candidate for medial branch rhizotomy. The patient is aware, was provided, once again, with a Pain Log and will follow up with the referring physician for review and clinical correlation
== END 2023-03-28 12:35 | disposition home or self-care (01) ==
LOC: RAD 10:44
PROVIDERS: PCP Internal Medicine; Referring Provider Physical Medicine & Rehabilitation; Visit Provider Physical Medicine & Rehabilitation
DX: M47.816 Spondylosis without myelopathy or radiculopathy, lumbar region (principal); M47.817 Spondylosis without myelopathy or radiculopathy, lumbosacral region
CPT/HCPCS: 64493; 64494; 99152; J2250; J3010

== ENCOUNTER → 2023-05-07 09:18 | Outpatient (CLI) | payer MEDICARE, OTHER, SELFPAY ==
[2021-08-15 14:57] VITALS: BMI 34.4
--- NOTE | 2023-05-07 | DI.MG.S_ITS ---
BILATERAL DIGITAL SCREENING MAMMOGRAM 3D/2D WITH CAD: 05/07/2023 CLINICAL: Routine screening. Comparison is made to exams dated: 04/18/2022 mammogram, 04/11/2021 mammogram, and 04/05/2020 mammogram - [facility]. There are scattered areas of fibroglandular density in both breasts (category b / 25%-50% glandular tissue). Current study was also evaluated with a Computer Aided Detection (CAD) system. No significant masses, calcifications, or other findings are seen in either breast. There has been no significant interval change. IMPRESSION: NEGATIVE There is no mammographic evidence of malignancy. A 1 year screening mammogram is recommended. Based on the Tyrer Cuzick model (a risk assessment model) the patient's lifetime risk is 6.3% and her 10 year risk is 3.7%. According to the ACR, ACS, and NCCN guidelines, an annual breast MRI exam along with mammogram is recommended if the patient's lifetime risk is 20% or greater. This exam was interpreted at Station ID: [id number]. NOTE: For mammograms, a report in lay terms will be sent to the patient. Approximately 15% of breast malignancies will not be visualized mammographically. In the management of a palpable breast mass, a negative mammogram must not discourage biopsy of a clinically suspicious lesion. Electronically Signed By: Daniel roche/luis:05/08/2023 08:49:13 letter sent: Normal Exam ACR BI-RADS Category 1: Negative [id number]
== END ==
PROVIDERS: PCP Internal Medicine; Referring Provider Internal Medicine; Visit Provider Internal Medicine
DX: Z12.31 Encounter for screening mammogram for malignant neoplasm of breast (principal)
CPT/HCPCS: 77063; 77067

== ENCOUNTER 2023-06-11 08:13 | Outpatient (CLI) | payer MEDICARE, OTHER, SELFPAY ==
[2021-08-15 14:57] VITALS: BMI 34.4
[2023-06-11] VITALS (10 sets, daily range): BP systolic 103–145; BP diastolic 58–88; PULSE 65–75; RESP 14–24; TEMP 36.2; O2SAT 94–100
--- NOTE | 2023-06-11 08:45 | DI.RAD.S_ITS ---
PROCEDURE: PAIN L/S FACET INJ/BLK 1ST DAYAMI INDICATIONS: LUMBAR FACET ARTHROPATHY COMPARISON: [facility], XA, PAIN L/S FACET INJ/BLK 1ST DAYAMI, 03/28/2023, 12:00. FINDINGS: Fluoroscopic spot filming was performed to verify placement of spinal needles at the right L4, L5 and S1 level(s), as labeled on the films. Appropriate location(s) of the needle tip(s) was confirmed by injection of iodinated contrast. IMPRESSION: Fluoroscopic guidance utilized for a medial branch block. Dictated by: Satnam Salazar M.D. on 06/11/2023 at 12:18 Approved by: Satnam Salazar M.D. on 06/11/2023 at 12:18
[2023-06-11] MEDS: MIDAZOLAM 2 MG/2 ML VIAL 1 MG IV ×2 (08:50→09:04)
[2023-06-11] MEDS: LIDOCAINE 2% INJ MDV 20ML 5 ML INJ (08:55)
[2023-06-11] MEDS: iopamidoL 15 ML VIAL 3 ML INJ (08:55)
[2023-06-11] MEDS: LIDOCAINE 1% 20 ML 5 ML INJ (08:55)
--- NOTE | 2023-06-11 09:12 | P.PCN_ITS ---
Date/Time/Diagnoses Date of procedure: 06/11/23 Time of procedure: 09:13 Pre-procedure diagnosis: 1. FACET ARTHROPATHY Post-procedure diagnosis: same Procedure Notes Procedure: 1. BILATERAL- L4, L5 and S1 DIAGNOSTIC MB BLOCKS with SA Anesthetic Indications: Meche is referred by Dr. Ríos for treatment of Bilateral Axial LBP. Physician: Juan C Ware Total Fluoroscopy time (seconds): 13 Total sedation minutes: 14 Complications: none Procedure in detail & Post-procedure care: DESCRIPTION OF PROCEDURE Fluoroscopically guided, contrast-controlled bilateral L4, L5 and S1 medial branch blocks with 0.5cc of 2% Lidocaine. Following review of allergy and review of potential side effects and complications, including, but not necessarily limited to, infection, allergic reaction, local tissue breakdown, nerve injury, paralysis, stroke and possible , the patient indicated that the patient understood and agreed to proceed. An informed consent document was signed by the patient, witnessed by a nurse, and placed in the patient's chart. After review of previous anaesthesic history and IV conscious sedation the patient was deemed safe to proceed with today's procedure with IV conscious sedation as ASA class II designation. Safety time-out was performed to confirm patient ID, procedure to be performed and site of procedure. IV sedation was accomplished with a combination of 2mg of Versed was administered by the RN after DO order, titrated to patient comfort during the course of the procedure while the patient remained responsive to all verbal commands In the prone position, following sterile prep and drape of the lumbar region, the right L4, L5 and S1 anatomical location of the medial branch of the dorsal ramus was identified fluoroscopically. Subsequently an anesthetic skin wheal using 1% lidocaine solution was initiated at each of the anatomical spots. Subsequently then a 22-gauge 3.5-inch spinal needle was atraumatically introduced and advanced under fluoroscopic guidance at each of the corresponding sites at the right L4, L5 and S1 MB. After negative aspiration, 0.2cc of Isovue 200 was injected, confirming placement without vascular or intrathecal uptake. Subsequently then 0.5cc of 2% Lidocaine solution was injected at each of the corresponding sites at the right L4, L5 and S1 medial branch locations. The identical procedure was replicated on the left. The patient tolerated the procedure well without signs or symptoms of complications prior to transfer to the recovery area continued monitoring without incident. Post-procedure, the patient was monitored initiating provocative activities to measure the amount of relief from block of the facetogenic pain. The patient reported a VAS of 7 prior to the procedure and a post-procedure VAS of 1. It has been a pleasure to assist in the diagnostic and therapeutic care of your patient. POST OP INSTRUCTIONS The patient was provided with a Pain Log to complete over the next several hours and subsequent days prior to the patient's follow up with the ordering physician. If the patient has senior vice president & general counsel relief to the solution applied, then they may be a candidate for medial branch rhizotomy. The patient is aware, was provided, once again, with a Pain Log and will follow up with the referring physician for review and clinical correlation
--- NOTE | 2023-06-12 10:24 | PC.NURSE ---
Procedure Follow up call: Spoke with Cindi @ [phone] No concerns or questions. Transferred to clinic to schedule follow up appointment.
== END 2023-06-11 09:38 | disposition home or self-care (01) ==
LOC: RAD 08:13
PROVIDERS: PCP Internal Medicine; Referring Provider Physical Medicine & Rehabilitation; Visit Provider Physical Medicine & Rehabilitation
DX: M47.816 Spondylosis without myelopathy or radiculopathy, lumbar region (principal); M47.817 Spondylosis without myelopathy or radiculopathy, lumbosacral region
CPT/HCPCS: 64493; 64494; 99152; J2250

== ENCOUNTER → 2023-08-27 11:32 | Outpatient (CLI) | payer MEDICARE, OTHER, SELFPAY ==
[2021-08-15 14:57] VITALS: BMI 34.4
[2023-08-27 13:01] LABS: COVID-19 CEPHEID 4-PLEX PCR Negative (Negative); Influenza A - CEPHEID Flu A NEGATIVE (NEGATIVE); Influenza B - CEPHEID Flu B NEGATIVE (NEGATIVE); Respiratory Syncytial Virus Negative (Negative)
== END ==
PROVIDERS: PCP Internal Medicine; Visit Provider Nurse Practitioner Family
DX: R05.3 Chronic cough (principal); R06.02 Shortness of breath
CPT/HCPCS: 0241U

== ENCOUNTER → 2024-05-25 14:45 | Outpatient (CLI) | payer MEDICARE, OTHER, SELFPAY ==
[2021-08-15 14:57] VITALS: BMI 34.4
--- NOTE | 2024-05-25 14:46 | DI.MG.S_ITS ---
BILATERAL DIGITAL SCREENING MAMMOGRAM 3D/2D WITH CAD: 05/25/2024 CLINICAL: Routine screening. Comparison is made to exams dated: 04/18/2022 mammogram and 04/11/2021 mammogram - [facility]. There are scattered areas of fibroglandular density (category b / 25%-50% glandular tissue). Current study was also evaluated with a Computer Aided Detection (CAD) system. No significant masses, calcifications, or other findings are seen in either breast. There has been no significant interval change. IMPRESSION: NEGATIVE There is no mammographic evidence of malignancy. A 1 year screening mammogram is recommended. Based on the Tyrer Cuzick model (a risk assessment model) the patient's lifetime risk is 6.0% and her 10 year risk is 3.8%. According to the ACR, ACS, and NCCN guidelines, an annual breast MRI exam along with mammogram is recommended if the patient's lifetime risk is 20% or greater. This exam was interpreted at Station ID: [id number]. NOTE: For mammograms, a report in lay terms will be sent to the patient. Approximately 15% of breast malignancies will not be visualized mammographically. In the management of a palpable breast mass, a negative mammogram must not discourage biopsy of a clinically suspicious lesion. Electronically Signed By: Mauricio lowery/luis:05/26/2024 10:35:00 letter sent: Normal Exam ACR BI-RADS Category 1: Negative
== END ==
LOC: MAMMO 14:46
PROVIDERS: PCP Internal Medicine; Referring Provider Internal Medicine; Visit Provider Internal Medicine
DX: Z12.31 Encounter for screening mammogram for malignant neoplasm of breast (principal)
CPT/HCPCS: 77063; 77067

== ENCOUNTER → 2024-08-06 10:31 | Outpatient (CLI) | payer MEDICARE, OTHER, SELFPAY ==
[2021-08-15 14:57] VITALS: BMI 34.4
--- NOTE | 2024-08-06 10:33 | DI.US.S_ITS ---
PROCEDURE: US PELVIC COMPLETE INDICATIONS: PELVIC PRESSURE TECHNIQUE: Real-time scanning was performed of the pelvic organs, with image documentation. Additional endovaginal scanning was necessary due to incomplete visualization of the adnexal and endometrial structures by transabdominal scanning. COMPARISON: [facility], , US PELVIC COMPLETE, 01/29/2020, 12:08. FINDINGS: Uterus: Uterus is anteverted and normal in size at 5.6 x 2.7 x 3.9 cm. The myometrium is homogeneous. The endometrium measures 7.9 mm combined thickness. Ovaries: The ovaries are not seen. Bilateral prominent adnexal vessels. Other: No pathologic free abdominal or pelvic fluid. IMPRESSION: Prominent adnexal vasculature bilaterally, nonspecific but can be seen with pelvic congestion syndrome. Recommend clinical correlation. Endometrium is at the upper limits of normal measuring 7.9 mm for postmenopausal female without bleeding history, normal is 8 mm or less. The ovaries are not seen. We strive to produce accurate, complete, and clear reports of imaging services. To assist us in improving patient care, this report was composed using standard report templates and voice recognition software. Therefore, it may contain abnormal punctuation, insertions and/or omissions. Occasional wrong-word or sound-alike substitutions may occur. Though we review the report and make efforts to correct it, we do recommend that the report be read carefully in proper context to recognize any text inaccuracies. Dictated by: Kelvin Archibald M.D. on 08/06/2024 at 13:43 Approved by: Kelvin Archibald M.D. on 08/06/2024 at 13:45
== END ==
PROVIDERS: PCP Internal Medicine; Referring Provider Physician Assistant; Visit Provider Physician Assistant
DX: R10.2 Pelvic and perineal pain (principal)
CPT/HCPCS: 76830; 76856

== ENCOUNTER 2024-09-10 09:00 | Outpatient (RCR) | payer MEDICARE, OTHER, SELFPAY ==
[2021-08-15 14:57] VITALS: BMI 34.4
--- NOTE | 2024-08-27 17:08 | PT.OPPOC ---
Physical, Occupational & Speech Therapy At [facility] Current Diagnoses Cystocele, midline (08/27/24) Pelvic muscle wasting (08/27/24) Visit Care Team Role Provider Type Yojana Ríos MD Family Provider Physician Primary Care Provider Specialty: Internal Medicine Address: [place], [address] Email: Jaycee Harvey DO Attending Provider Physician Referring Provider Specialty: FITNESS CLUB MANAGER Address: [address] [place] [address], [address], [place], [address] Email: [email or web address] Plan Of Care PT-OP-B Current Condition Start: 08/26/24 12:41 Freq: Status: Active Protocol: Document 08/27/24 08:14 [facility] (Rec: 08/27/24 08:31 [facility] [id number]) Current Condition History of Current Condition Onset Date started in June 2024 Current Complaints pelvic pressure especially with voiding, urethral irritation but no pain History of Current Condition she feels pressure with emptying her bladder, she has never had a hard stream and she notes her urine dribbles out. The flow has always been week and this has not changed recently She wears a panty liner but more for small amounts of dribbling after she voids. There are times if she has a strong urge to void if she waits too long then she cant make it to the bathroom and if she waits too long she cant hold it. Sometimes when she urinates it feels like the urethra is aggravated and tender. No UTI and no vaginal infection. Past medical history includes one vaginal delivery, history of low back and hip pain, history of bilateral knee replacement Treatment Goals Patient/Caregiver Goals Treatment goal including reducing pelvic pressure with voiding PT-OP-T Assessment and Plan Start: 08/26/24 12:41 Freq: Status: Active Protocol: Document 08/27/24 08:14 [facility] (Rec: 08/27/24 17:29 [facility] [id number]) Physical Therapy Assessment Rehab Potential Rehabilitation Potential Good Evaluation Complexity Number of Personal Factors/Comorbidities 1-2 Number of Body Systems Impaired 3 Clinical Presentation at Evaluation Evolving Impairments Impairments Functional Activities, Functional Mobility,Pain, Posture,Soft Tissue Mobility, Strength Goals 3 Impairment c/o pelvic pressure especially with voiding [facility] Goal (LTG) With improved pelvic floor support Cindi reports a overall reduction of pelvic pressure and heaviness with voiding LTG Duration 8 weeks 2 Impairment Decreased endurance of the levator ani Short Term Goal (STG) Cindi is able to sustain a pelvic floor contraction in supine x 10 seconds STG Duration 5 weeks [facility] Goal (LTG) Cindi is able to sustain a pelvic floor contraction in sitting x 5 seconds LTG Duration 8 weeks 1 Impairment pelvic floor weakness Insurance Writer Goal (LTG) Cindi presents with overall improved pelvic floor strength with at least 1 MMT grade better for all coronel of the levator ani LTG Duration 8 weeks Assessment Summary Assessment Cindi is a 69 year old female who presents with chief complaints of pelvic pressure and heaviness with voiding. She presents with vaginal atrophy and a vaginal wall prolapse. She does have a history of low back pain and hip pain. pt has been prescribed estradiol and she has been using this. With pelvic floor exam today Cindi presents with weakness throughout the pelvic floor. MMT is as follows: Anterior right is 1/5 MMT, anterior left is 0/5 MMT, lateral coronel are 1/5 MMT and posterior wall is 2/5. Cindi has decreased endurance of her pelvic floor to sustain a contraction for more than a few seconds in supine. She is a good candidate for pelvic floor PT to increase both strength and endurance of the pelvic floor. Physical Therapy Plan Frequency and Duration Frequency of Treatment 1x/Week Duration of treatment (weeks) 8 Plan of Care Start Date 08/27/24 Plan of Care End Date 10/22/24 Therapeutic Interventions Therapeutic Interventions Home Exercise Program, Neuromuscular Re-education, Self-Care/Home Management, Therapeutic Exercises Modalities Biofeedback Next Visit Focus/Plan Next Note Type Treatment Note Next Visit Plan pelvic floor strength and endurance training, work on lateral hip strengthening and gluteal strengthening Plan of Care Dates Plan of Care Start Date 08/27/24 Plan of Care End Date 10/22/24 Electronically Signed by: Michelle Lyons, PT 09/01/24 [id number] If you are in agreement with this Plan of Care, please return a signed and dated copy. I have reviewed this Plan of Care and certify that the skilled therapy services above are required to meet the patient?s needs. Physician Signature Date Printed Name and Credentials Clinical Instructor Signature Printed Name and Credentials
--- NOTE | 2024-08-27 17:08 | PT.OIE ---
Current Diagnoses Cystocele, midline (08/27/24) Pelvic muscle wasting (08/27/24) Past Medical History (Last Reviewed 05/20/23 @ 10:19 by Juan C Ware DO) Anxiety Arthritis Depression Easy bruisability Facet arthropathy, lumbar GERD (gastroesophageal reflux disease) Gout HTN (hypertension) Lumbar stenosis with neurogenic claudication Morbid obesity due to excess calories Osteoarthritis Past Surgical History (Last Reviewed 05/20/23 @ 10:19 by Juan C Ware DO) H/O arthroscopic knee surgery History of total right knee replacement (04/01/19) Hx of bariatric surgery (~2008) Hx of cervical spine surgery (~2014) Visit Care Team Role Provider Type Yojana Ríos MD Family Provider Physician Primary Care Provider Specialty: Internal Medicine Address: [place], [address] Email: Jaycee Harvey DO Attending Provider Physician Referring Provider Specialty: HYDRAULIC PLUMBER HELPER Address: [address] [place] [address], [address], [place], [address] Email: [email or web address] Physical Therapy Initial Evaluation PT-OP-A Visit Information Start: 08/26/24 12:41 Freq: Status: Active Protocol: Document 08/27/24 08:14 [facility] (Rec: 08/27/24 08:31 [facility] [id number]) Out-Patient Physical Therapy Visit Information Visit Information Visit Type Initial Evaluation Visit Start Time 08:15 Visit Stop Time 09:00 Visit Number 1 Evaluation Information Evaluation Date 08/27/24 PT-OP-B Current Condition Start: 08/26/24 12:41 Freq: Status: Active Protocol: Document 08/27/24 08:14 [facility] (Rec: 08/27/24 08:31 [facility] [id number]) Current Condition History of Current Condition Onset Date started in June 2024 Current Complaints pelvic pressure especially with voiding, urethral irritation but no pain History of Current Condition she feels pressure with emptying her bladder, she has never had a hard stream and she notes her urine dribbles out. The flow has always been week and this has not changed recently She wears a panty liner but more for small amounts of dribbling after she voids. There are times if she has a strong urge to void if she waits too long then she cant make it to the bathroom and if she waits too long she cant hold it. Sometimes when she urinates it feels like the urethra is aggravated and tender. No UTI and no vaginal infection. Past medical history includes one vaginal delivery, history of low back and hip pain, history of bilateral knee replacement Treatment Goals Patient/Caregiver Goals Treatment goal including reducing pelvic pressure with voiding PT-OP-C Subjective Start: 08/26/24 12:41 Freq: Status: Active Protocol: Document 08/27/24 08:15 [facility] (Rec: 09/01/24 16:51 [facility] [id number]) Patient Questionnaires Pelvic Pain and Urgency/Frequency Patient Symptom Scale Pelvic Pain Score 1 OP-PT Pain Assessment Location low back and hip pain Pain Location Details bilateral low back and hips Intensity 4 Scale Used Numeric (0 - 10) PT-OP-I Pelvic Floor Start: 08/26/24 12:41 Freq: Status: Active Protocol: Document 08/27/24 08:15 [facility] (Rec: 08/27/24 17:26 [facility] [id number]) Pelvic Floor Assessment Urine Pelvic Floor Surgery No Urinary Symptoms Falling Out Feeling/Heavy Other Urinary Symptoms pt describes pelvic pressure when voiding Prolapse Prolapse Comments vaginal wall prolapse Contraction Ability Voluntary Contraction Weak Voluntary Relaxation Weak Manual Muscle Testing Left 1 Manual Muscle Testing Right 1 Manual Muscle Testing Anterior 1 Manual Muscle Testing Posterior 2 Muscle Endurance (Seconds) 3 Comments Pelvic Floor Comments Cindi has a history of low back and hip weakness that most likely contributes to pelvic floor weakness PT-OP-Q Treatments Start: 08/26/24 12:41 Freq: Status: Active Protocol: Document 08/27/24 08:15 [facility] (Rec: 08/27/24 17:26 [facility] [id number]) Therapeutic Exercises Supine Exercises ball squeeze with pelvic floor contraction Reps/Minutes 10 reps holding 5 seconds and relaxing 10 seconds Self-Care/Home Management Treatment Education Patient Education Home Exercise Program Other Education education on pelvic floor relaxation with voiding to avoid any pushing through the pelvic floor that may be contributing to the pressure she is feeling with voiding PT-OP-T Assessment and Plan Start: 08/26/24 12:41 Freq: Status: Active Protocol: Document 08/27/24 08:14 [facility] (Rec: 08/27/24 17:29 [facility] [id number]) Physical Therapy Assessment Rehab Potential Rehabilitation Potential Good Evaluation Complexity Number of Personal Factors/Comorbidities 1-2 Number of Body Systems Impaired 3 Clinical Presentation at Evaluation Evolving Impairments Impairments Functional Activities, Functional Mobility,Pain, Posture,Soft Tissue Mobility, Strength Goals 3 Impairment c/o pelvic pressure especially with voiding Art Critic Goal (LTG) With improved pelvic floor support Cindi reports a overall reduction of pelvic pressure and heaviness with voiding LTG Duration 8 weeks 2 Impairment Decreased endurance of the levator ani Short Term Goal (STG) Cindi is able to sustain a pelvic floor contraction in supine x 10 seconds STG Duration 5 weeks Senior Care Goal (LTG) Cindi is able to sustain a pelvic floor contraction in sitting x 5 seconds LTG Duration 8 weeks 1 Impairment pelvic floor weakness Senior Care Goal (LTG) Cindi presents with overall improved pelvic floor strength with at least 1 MMT grade better for all coronel of the levator ani LTG Duration 8 weeks Assessment Summary Assessment Cindi is a 69 year old female who presents with chief complaints of pelvic pressure and heaviness with voiding. She presents with vaginal atrophy and a vaginal wall prolapse. She does have a history of low back pain and hip pain. pt has been prescribed estradiol and she has been using this. With pelvic floor exam today Cindi presents with weakness throughout the pelvic floor. MMT is as follows: Anterior right is 1/5 MMT, anterior left is 0/5 MMT, lateral coronel are 1/5 MMT and posterior wall is 2/5. Cindi has decreased endurance of her pelvic floor to sustain a contraction for more than a few seconds in supine. She is a good candidate for pelvic floor PT to increase both strength and endurance of the pelvic floor. Physical Therapy Plan Frequency and Duration Frequency of Treatment 1x/Week Duration of treatment (weeks) 8 Plan of Care Start Date 08/27/24 Plan of Care End Date 10/22/24 Therapeutic Interventions Therapeutic Interventions Home Exercise Program, Neuromuscular Re-education, Self-Care/Home Management, Therapeutic Exercises Modalities Biofeedback Next Visit Focus/Plan Next Note Type Treatment Note Next Visit Plan pelvic floor strength and endurance training, work on lateral hip strengthening and gluteal strengthening
--- NOTE | 2024-09-10 10:57 | PT.OTN ---
Current Diagnoses Cystocele, midline (09/10/24) Pelvic muscle wasting (09/10/24) Physical Therapy Treatment Note PT-OP-A Visit Information Start: 08/26/24 12:41 Freq: Status: Active Protocol: Document 09/10/24 08:56 [facility] (Rec: 09/10/24 09:39 [facility] [id number]) Out-Patient Physical Therapy Visit Information Visit Information Visit Type Treatment Note Visit Start Time 09:00 Visit Stop Time 09:45 Visit Number 2 PT-OP-B Current Condition Start: 08/26/24 12:41 Freq: Status: Active Protocol: Document 08/27/24 08:14 [facility] (Rec: 08/27/24 08:31 [facility] [id number]) Current Condition History of Current Condition Onset Date started in June 2024 Current Complaints pelvic pressure especially with voiding, urethral irritation but no pain History of Current Condition she feels pressure with emptying her bladder, she has never had a hard stream and she notes her urine dribbles out. The flow has always been week and this has not changed recently She wears a panty liner but more for small amounts of dribbling after she voids. There are times if she has a strong urge to void if she waits too long then she cant make it to the bathroom and if she waits too long she cant hold it. Sometimes when she urinates it feels like the urethra is aggravated and tender. No UTI and novaginal infection. Past medical history includes one vaginal delivery, history of low back and hip pain, history of bilateral knee replacement Treatment Goals Patient/Caregiver Goals Treatment goal including reducing pelvic pressure with voiding PT-OP-C Subjective Start: 08/26/24 12:41 Freq: Status: Active Protocol: Document 09/10/24 08:56 [facility] (Rec: 09/10/24 09:39 [facility] [id number]) OP-PT Subjective Patient Comments Patient Comments pt notes pressure with voiding sometimes is great and other times it is there. She notes she can feel her pelvic floor at times and other times she is unable to feel it. PT-OP-I Pelvic Floor Start: 08/26/24 12:41 Freq: Status: Active Protocol: Document 08/27/24 08:15 [facility] (Rec: 08/27/24 17:26 [facility] [id number]) Pelvic Floor Assessment Urine Pelvic Floor Surgery No Urinary Symptoms Falling Out Feeling/Heavy Other Urinary Symptoms pt describes pelvic pressure when voiding Prolapse Prolapse Comments vaginal wall prolapse Contraction Ability Voluntary Contraction Weak Voluntary Relaxation Weak Manual Muscle Testing Left 1 Manual Muscle Testing Right 1 Manual Muscle Testing Anterior 1 Manual Muscle Testing Posterior 2 Muscle Endurance (Seconds) 3 Comments Pelvic Floor Comments Cindi has a history of low back and hip weakness that most likely contributes to pelvic floor weakness PT-OP-Q Treatments Start: 08/26/24 12:41 Freq: Status: Active Protocol: Document 09/10/24 08:56 [facility] (Rec: 09/10/24 09:39 [facility] [id number]) Therapeutic Exercises Supine Exercises templates for eccentric control and coordination Reps/Minutes 5 min hooklying clam shell with resistance Equipment Used level 2 theraband Reps/Minutes 20 reps 3 times per week pelvic floor long holds Reps/Minutes 10 seconds on 10 sec off x 10 reps Comments average 7.6 max 26.3 ball squeeze with pelvic floor contraction Supine Exercise Name with adductor assist 7.0 and 19.8 Reps/Minutes 10 sec hold and 10 sec relax PT-OP-T Assessment and Plan Start: 08/26/24 12:41 Freq: Status: Active Protocol: Document 09/10/24 08:56 [facility] (Rec: 09/10/24 09:39 [facility] [id number]) Physical Therapy Assessment Goals 3 Impairment c/o pelvic pressure especially with voiding Residential Goal (LTG) With improved pelvic floor support Cindi reports a overall reduction of pelvic pressure and heaviness with voiding LTG Duration 8 weeks 2 Impairment Decreased endurance of the levator ani Short Term Goal (STG) Cindi is able to sustain a pelvic floor contraction in supine x 10 seconds STG Duration 5 weeks Residential Goal (LTG) Cindi is able to sustain a pelvic floor contraction in sitting x 5 seconds LTG Duration 8 weeks 1 Impairment pelvic floor weakness Customer Engagement Representative Goal (LTG) Cindi presents with overall improved pelvic floor strength with at least 1 MMT grade better for all coronel of the levator ani LTG Duration 8 weeks Assessment Summary Assessment I worked with Cindi today with pelvic floor endurance and strength work. I also added in lateral hip strengthening to her HEP. She did better today with pelvic floor islolations. She has difficulty sustaining a pelvic floor contraction for more than a few seconds at a time. WIth the biofeedback she was able to recontract her pelvic floor when she saw the levels decreasing. Physical Therapy Plan Frequency and Duration Frequency of Treatment 1x/Week Duration of treatment (weeks) 8 Plan of Care Start Date 08/27/24 Plan of Care End Date 10/22/24 Therapeutic Interventions Therapeutic Interventions Home Exercise Program, Neuromuscular Re-education, Self-Care/Home Management, Therapeutic Exercises Modalities Biofeedback Next Visit Focus/Plan Next Note Type Treatment Note Next Visit Plan review new exercises, begin TA stabilization and continue with pelvic floor endurance training
--- NOTE | 2024-10-06 09:40 | PT.OPDS ---
Current Diagnoses Cystocele, midline (09/10/24) Pelvic muscle wasting (09/10/24) Visit Care Team Role Provider Type Yojana Ríos MD Family Provider Physician Primary Care Provider Specialty: Internal Medicine Address: [place], [address] Email: Jaycee Harvey DO Attending Provider Physician Referring Provider Specialty: STOCK ROOM MANAGER Address: [address] [place] [address], [address], [place], [address] Email: [email or web address] Visit Number Visit Number 2 Discharge Summary PT-OP-B Current Condition Start: 08/26/24 12:41 Freq: Status: Active Protocol: Document 08/27/24 08:14 [facility] (Rec: 08/27/24 08:31 [facility] [id number]) Current Condition History of Current Condition Onset Date started in June 2024 Current Complaints pelvic pressure especially with voiding, urethral irritation but no pain History of Current Condition she feels pressure with emptying her bladder, she has never had a hard stream and she notes her urine dribbles out. The flow has always been week and this has not changed recently She wears a panty liner but more for small amounts of dribbling after she voids. There are times if she has a strong urge to void if she waits too long then she cant make it to the bathroom and if she waits too long she cant hold it. Sometimes when she urinates it feels like the urethra is aggravated and tender. No UTI and novaginal infection. Past medical history includes one vaginal delivery, history of low back and hip pain, history of bilateral knee replacement Treatment Goals Patient/Caregiver Goals Treatment goal including reducing pelvic pressure with voiding PT-OP-C Subjective Start: 08/26/24 12:41 Freq: Status: Active Protocol: Document 09/10/24 08:56 [facility] (Rec: 09/10/24 09:39 [facility] [id number]) OP-PT Subjective Patient Comments Patient Comments pt notes pressure with voiding sometimes is great and other times it is there. She notes she can feel her pelvic floor at times and other times she is unable to feel it. PT-OP-I Pelvic Floor Start: 08/26/24 12:41 Freq: Status: Active Protocol: Document 08/27/24 08:15 [facility] (Rec: 08/27/24 17:26 [facility] [id number]) Pelvic Floor Assessment Urine Pelvic Floor Surgery No Urinary Symptoms Falling Out Feeling/Heavy Other Urinary Symptoms pt describes pelvic pressure when voiding Prolapse Prolapse Comments vaginal wall prolapse Contraction Ability Voluntary Contraction Weak Voluntary Relaxation Weak Manual Muscle Testing Left 1 Manual Muscle Testing Right 1 Manual Muscle Testing Anterior 1 Manual Muscle Testing Posterior 2 Muscle Endurance (Seconds) 3 Comments Pelvic Floor Comments Cindi has a history of low back and hip weakness that most likely contributes to pelvic floor weakness PT-OP-T Assessment and Plan Start: 08/26/24 12:41 Freq: Status: Active Protocol: Document 10/06/24 09:37 [facility] (Rec: 10/06/24 09:40 [facility] [id number]) Physical Therapy Assessment Goals 3 Impairment c/o pelvic pressure especially with voiding Mail Messenger Goal (LTG) With improved pelvic floor support Cindi reports a overall reduction of pelvic pressure and heaviness with voiding LTG Duration 8 weeks 2 Impairment Decreased endurance of the levator ani Short Term Goal (STG) Cindi is able to sustain a pelvic floor contraction in supine x 10 seconds STG Duration 5 weeks Mail Messenger Goal (LTG) Cindi is able to sustain a pelvic floor contraction in sitting x 5 seconds LTG Duration 8 weeks 1 Impairment pelvic floor weakness Retirement Goal (LTG) Cindi presents with overall improved pelvic floor strength with at least 1 MMT grade better for all coronel of the levator ani LTG Duration 8 weeks Assessment Summary Assessment Meche chavez)has cancelled her remaining visits as she is not able to continue PT at this time. She was seen for 2 visits only. At this time I will discharge her from PT, I would be happy to restart PT when she is ready in the future. Physical Therapy Plan Discharge Physical Therapy Discharge Reasons No Longer Attending PT
== END 2024-10-06 13:35 | disposition home or self-care (01) ==
LOC: PHYS 09:00
PROVIDERS: Family Provider Internal Medicine; PCP Internal Medicine; Referring Provider Student in an Organized Health Care Education/Training Program; Visit Provider Student in an Organized Health Care Education/Training Program
DX: N81.11 Cystocele, midline (principal); N81.84 Pelvic muscle wasting
CPT/HCPCS: 97110; 97162; 97535

== ENCOUNTER → 2025-04-27 11:12 | Outpatient (CLI) | payer MEDICARE, OTHER, SELFPAY ==
[2021-08-15 14:57] VITALS: BMI 34.4
--- NOTE | 2025-04-27 11:18 | DI.MRI.S_ITS ---
PROCEDURE: MR LUMBAR SPINE WO CON INDICATIONS: PAIN TECHNIQUE: Noncontrast sagittal T1 spin echo and T2 fast echo, sagittal STIR, and T2 fast spin echo through the lumbar spine. In cases with scoliosis, additional coronal T2 fast spin echo may be performed. COMPARISON: [facility], MR, MR LUMBAR SPINE WO CON, 12/28/2020, 9:22. FINDINGS: Image quality: Excellent. Alignment and Curvature: Levo scoliotic curvature of the lumbar spine. Grade 1 anterolisthesis of L5 on S1. Bone Marrow: Degenerative endplate changes. Marrow is of normal overall signal. No acute vertebral body compression fractures. Spinal Cord: Conus medullaris terminates at the L1 level. Visualized cord demonstrates normal signal and size. Paraspinous Soft Tissues: No paravertebral masses. T12-L1: Disc desiccation and minimal disc bulge. No central canal or neural foraminal stenosis. L1-L2: Disc desiccation and moderate height loss. Diffuse disc bulge. Facet arthropathy. Epidural lipomatosis. Moderate to severe central canal stenosis. Moderate to severe bilateral neural foraminal stenosis is mildly progressed. L2-L3: Disc desiccation and severe height loss. Diffuse disc bulge. Facet hypertrophy. Epidural lipomatosis. Moderate central canal stenosis is mildly increased compared to prior. Moderate right and mild left neural foraminal stenosis is stable. L3-L4: Disc desiccation and severe height loss. Mild disc bulge. Facet arthropathy. Mild central canal stenosis. Moderate right and mild left neural foraminal stenosis is stable. L4-L5: Disc desiccation and diffuse disc bulge. Facet hypertrophy and thickening of ligamentum flavum. Epidural lipomatosis. Severe central canal stenosis appears mildly increased compared to prior. Moderate to severe left and moderate right neural foraminal stenosis is stable. L5-S1: Disc desiccation and mild disc bulge. Facet hypertrophy. Moderate central canal stenosis. Moderate bilateral neural foraminal stenosis. IMPRESSION: 1. Multilevel degenerative changes of the lumbar spine with mild progression as described above. 2. Severe central canal stenosis at L4-5. Moderate to severe central canal stenosis at L1-L2. 3. Moderate to severe neural foraminal stenosis bilaterally at L1-L2 and on the left at L4-5. Dictated by: Kelvin Archibald M.D. on 04/29/2025 at 9:49 Approved by: Kelvin Archibald M.D. on 04/29/2025 at 10:04
--- NOTE | 2025-04-27 11:19 | DI.MRI.S_ITS ---
PROCEDURE: MR PELVIS WO CON INDICATIONS: PAIN in sacrum TECHNIQUE: Noncontrast axial and oblique coronal T1 spin echo and STIR through the sacroiliac joints. COMPARISON: None. FINDINGS: Image quality: Excellent. Bones: The sacroiliac joints appear intact. No adjacent bone marrow edema to suggest active sacroiliitis. No bony ankylosis. No suspicious marrow space occupying lesions. No fracture. Severe facet arthropathy and disc bulge posteriorly at L5-S1 with moderate central canal narrowing. Severe facet arthropathy and disc bulge at L4-L5 with severe central canal narrowing and moderate to severe bilateral foraminal narrowing. Soft tissues: No presacral masses. Rectum appears normal in caliber and wall thickness. No pathologic free pelvic fluid. IMPRESSION: Severe degenerative changes of the lower lumbar spine, partially imaged. Sacrum is unremarkable. Dictated by: Mack Sheth M.D. on 04/27/2025 at 14:00 Approved by: Mack Sheth M.D. on 04/27/2025 at 14:04
== END ==
PROVIDERS: Family Provider Internal Medicine; PCP Internal Medicine; Referring Provider Internal Medicine; Visit Provider Internal Medicine
DX: M48.061 Spinal stenosis, lumbar region without neurogenic claudication (principal); M51.17 Intervertebral disc disorders with radiculopathy, lumbosacral region; M48.07 Spinal stenosis, lumbosacral region; M47.26 Other spondylosis with radiculopathy, lumbar region; M51.16 Intervertebral disc disorders with radiculopathy, lumbar region; M47.27 Other spondylosis with radiculopathy, lumbosacral region; M43.17 Spondylolisthesis, lumbosacral region; E88.2 Lipomatosis, not elsewhere classified; M48.8X6 Other specified spondylopathies, lumbar region; G89.29 Other chronic pain
CPT/HCPCS: 72148; 72195